=== PATIENT | female | born 1950 | race African-American/Black ===

== ENCOUNTER 2016-12-16 13:23 | Inpatient (IN) | payer OTHER ==
[2016-12-16] VITALS (10 sets, daily range): BP systolic 134–172; BP diastolic 65–93; PULSE 86–102; RESP 16–20; TEMP 98.3–98.7; O2SAT 89–99
[~2016-12-16] VITALS: Ht 160 cm; Wt 83.5 kg
[2016-12-16] MEDS ORDERED: SODIUM CHLORIDE 0.9% FLUSH 10 ML FLUSH IVF PRN (14:00)
[2016-12-16] MEDS ORDERED: RESP: ALBUTEROL 2.5 MG/IPRATROPIUM 0.5 MG NEB (SCH) INH ONE (14:00)
[2016-12-16 14:09] LABS: AUTOMATED NEUTROPHIL # 6.2 TH/MM3 (1.8-7.7); BASOPHIL % 0.4 % (0.0-2.0); EOSINOPHIL # 0.6 TH/MM3 (0-0.4); EOSINOPHIL % 6.3 % (0.0-4.0); HEMATOCRIT 45.3 % (35.0-46.0); HEMOGLOBIN 14.8 GM/DL (11.6-15.3); LYMPHOCYTE # 1.9 TH/MM3 (1.0-4.8); MEAN CELL VOLUME 86.7 FL (80.0-100.0); MEAN CORPUSCULAR HEMOGLOBIN 28.4 PG (27.0-34.0); MEAN CORPUSCULAR HGB CONC 32.8 % (32.0-36.0); MEAN PLATELET VOLUME 8.8 FL (7.0-11.0); MONO % 3.5 % (0.0-8.0); MONOCYTE # 0.3 TH/MM3 (0-0.9); NEUT % 68.8 % (16.0-70.0); PLATELET COUNT 241 TH/MM3 (150-450); RED BLOOD COUNT 5.22 MIL/MM3 (4.00-5.30); RED CELL DISTRIBUTION WIDTH 14.5 % (11.6-17.2); WHITE BLOOD COUNT 9.1 TH/MM3 (4.0-11.0)
--- NOTE | 2016-12-16 14:22 | PD ---
HPI Chief Complaint: Chest Pain Time Seen by Provider: 13:35 Travel History International Travel<30 days: No Contact w/Intl Traveler<30days: No Traveled to known affect area: No History of Present Illness HPI This is a 66-year-old female history of hyperlipidemia, who presents from the OR for evaluation of chest tightness and coughing congestion. The patient was seen and evaluated at the OR clinic today. They working diagnosis at time was bronchitis. They've given her 2 nebulizer treatments and 125 mg of Solu-Medrol IM. The patient was also complaining of two-week intermittent chest tightness. Given that, they sent her to be evaluated for her chest tightness in addition to her shortness of breath. The patient denies any exertional component of the chest tightness. She reports she can only walk a few feet before she gets winded. She has no history of pulmonary disease. [facility] Past Medical History Medical History: Denies Significant Hx Past Surgical History Surgical History: No Previous Surgery Social History Alcohol Use: No Tobacco Use: No Substance Use: No Allergies-Medications (Allergen,Severity, Reaction): Coded Allergies: No Known Allergies (Verified Allergy, Unknown, 12/16/16) Reported Meds & Prescriptions Reported Meds & Active Scripts Active No Active Prescriptions or Reported Medications Review of Systems Except as stated in HPI: all other systems reviewed are Neg General / Constitutional: No: Fever, Chills HENT: No: Headaches, Lightheadedness Cardiovascular: Positive: Chest Pain or Discomfort (tightness), No: Palpitations, Irregular Rhythm Respiratory: Positive: Cough, Shortness of Breath (thick phlegm), Wheezing Gastrointestinal: No: Nausea, Vomiting, Abdominal Pain Musculoskeletal: No: Weakness, Pain Neurologic: No: Weakness, Dizziness, Headache Physical Exam Narrative GENERAL: Well developed well-nourished female in mild respiratory discomfort SKIN: Focused skin assessment warm/dry. HEAD: Atraumatic. Normocephalic. EYES: Pupils equal and round. No scleral icterus. No injection or drainage. ENT: No nasal bleeding or discharge. Mucous membranes pink and moist. NECK: Trachea midline. Supple. CARDIOVASCULAR: Regular rate and rhythm. No murmur appreciated. RESPIRATORY: Diffuse expiratory wheezes with questionable Rales at the base. GASTROINTESTINAL: Abdomen soft, non-tender, nondistended. MUSCULOSKELETAL: No obvious deformities. No clubbing. No cyanosis. No edema. NEUROLOGICAL: Awake and alert. No obvious cranial nerve deficits. Motor grossly within normal limits. Normal speech. PSYCHIATRIC: Appropriate mood and affect; insight and judgment normal. Data Data Last Documented VS Vital Signs Date Time Temp Pulse Resp B/P (MAP) Pulse Ox O2 Delivery O2 Flow Rate FiO2 12/16/16 17:43 92 18 139/68 (91) 94 Nasal Cannula 3.00 12/16/16 13:27 98.7 Orders Orders Complete Blood Count With Diff (12/16/16 13:51) Comprehensive Metabolic Panel (12/16/16 13:51) Ckmb (Isoenzyme) Profile (12/16/16 13:51) Troponin I (12/16/16 13:51) Arterial Blood Gas (Abg) (12/16/16 13:51) Iv Access Insert/Monitor (12/16/16 13:51) Electrocardiogram (12/16/16 13:51) Ecg Monitoring (12/16/16 13:51) Oximetry (12/16/16 13:51) Oxygen Administration (12/16/16 13:51) Chest, Pa & Lat (12/16/16 13:51) Sodium Chloride 0.9% Flush (Ns Flush) (12/16/16 14:00) Albuterol-Ipratropium Neb (Duoneb Neb) (12/16/16 14:00) Ct Thorax/ Chest W Iv Contrast (12/16/16 15:47) Iohexol 350 Inj (Omnipaque 350 Inj) (12/16/16 16:13) Place In Observation (12/16/16 ) Vital Signs (Adult) Q4H (12/16/16 16:44) Activity Oob Ad Sandy (12/16/16 16:44) Bedside Glucose MANDY.CSUGAR (12/16/16 16:44) Collection Support Specialist / Telemetry .CONTINUOUS (12/16/16 16:44) Intake + Output MANDY.QSHIFT (12/16/16 16:44) Notify Dr: Other (12/16/16 16:44) Diet 1800 Ada Cons Carb (12/16/16 Dinner) Diet Heart Healthy (12/16/16 Dinner) Sodium Chloride 0.9% Flush (Ns Flush) (12/16/16 16:45) Sodium Chloride 0.9% Flush (Ns Flush) (12/16/16 21:00) Acetaminophen (Tylenol) (12/16/16 16:45) Ondansetron Inj (Zofran Inj) (12/16/16 16:45) Basic Metabolic Panel (Bmp) (12/17/16 06:00) Complete Blood Count With Diff (12/17/16 06:00) Resp Oxygen Abdirizak C Titrat 1-4 L (12/16/16 ) Case Management Consult (12/16/16 16:44) Heparin Inj (Heparin Inj) (12/16/16 17:00) Scd Bilateral/Knee High MANDY.BID (12/16/16 16:44) Naloxone Inj (Narcan Inj) (12/16/16 16:45) Docusate Sodium-Senna (Denae-Colace) (12/16/16 21:00) Magnesium Hydroxide Liq (Milk Of Magnesi (12/16/16 16:45) Sennosides (Senokot) (12/16/16 16:45) Bisacodyl Supp (Dulcolax Supp) (12/16/16 16:45) Lactulose Liq (Lactulose Liq) (12/16/16 16:45) Albuterol-Ipratropium Neb (Duoneb Neb) (12/16/16 20:00) Albuterol-Ipratropium Neb (Duoneb Neb) (12/16/16 17:00) Methylprednisolone So Succ Inj (Solumedr (12/16/16 22:00) Ct Abd/Pel W/O Iv Contrast (12/16/16 ) Oral Contrast - Adult (12/16/16 17:31) Diatrizoate Liq ( Gastroview Liq) (12/16/16 17:45) Admit Order (Ed Use Only) (12/16/16 17:54) Ceftriaxone Inj (Rocephin Inj) (12/16/16 18:00) Azithromycin Inj (Zithromax Inj) (12/16/16 18:00) Labs Laboratory Tests Test 12/16/16 13:58 12/16/16 14:20 White Blood Count 9.1 TH/MM3 Red Blood Count 5.22 MIL/MM3 Hemoglobin 14.8 GM/DL Hematocrit 45.3 % Mean Corpuscular Volume 86.7 FL Mean Corpuscular Hemoglobin 28.4 PG Mean Corpuscular Hemoglobin Concent 32.8 % Red Cell Distribution Width 14.5 % Platelet Count 241 TH/MM3 Mean Platelet Volume 8.8 FL Neutrophils (%) (Auto) 68.8 % Lymphocytes (%) (Auto) 21.0 % Monocytes (%) (Auto) 3.5 % Eosinophils (%) (Auto) 6.3 % Basophils (%) (Auto) 0.4 % Neutrophils # (Auto) 6.2 TH/MM3 Lymphocytes # (Auto) 1.9 TH/MM3 Monocytes # (Auto) 0.3 TH/MM3 Eosinophils # (Auto) 0.6 TH/MM3 Basophils # (Auto) 0.0 TH/MM3 CBC Comment DIFF FINAL Differential Comment Blood Urea Nitrogen 15 MG/DL Creatinine 0.84 MG/DL Random Glucose 107 MG/DL Total Protein 7.9 GM/DL Albumin 3.7 GM/DL Calcium Level 8.9 MG/DL Alkaline Phosphatase 107 U/L Aspartate Amino Transf (AST/SGOT) 19 U/L Alanine Aminotransferase (ALT/SGPT) 18 U/L Total Bilirubin 0.7 MG/DL Sodium Level 141 MEQ/L Potassium Level 3.5 MEQ/L Chloride Level 106 MEQ/L Carbon Dioxide Level 26.9 MEQ/L Anion Gap 8 MEQ/L Estimat Glomerular Filtration Rate 68 ML/MIN Total Creatine Kinase 47 U/L Troponin I LESS THAN 0.02 NG/ML Blood Gas Puncture Site LT RADIAL Blood Gas Patient Temperature 98.6 Blood Gas HCO3 25 mmol/L Blood Gas Base Excess 1.3 mmol/L Blood Gas Oxygen Saturation 88 % Arterial Blood pH 7.43 Arterial Blood Partial Pressure CO2 39 mmHg Arterial Blood Partial Pressure O2 56 mmHG Arterial Blood Oxygen Content 17.8 Vol % Arterial Blood Carboxyhemoglobin 1.2 % Arterial Blood Methemoglobin 0.5 % Blood Gas Hemoglobin 14.4 G/DL Blood Gas Inspired Oxygen 21 % [facility] Medical Decision Making Medical Screen Exam Complete: Yes Emergency Medical Condition: Yes Differential Diagnosis Bronchitis versus pneumonia versus COPD versus ACS Narrative Course 66-year-old female presents today with complaints of cough and shortness of breath. [facility]. 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 She is hypoxic with an O2 sat of 88%. She'll be admitted to the hospital for nebulizer treatments and antibiotics. She's been started on Rocephin and Zithromax here. [facility] the [facility] to the service. A CT chest has been ordered to evaluate the mediastinal mass. Diagnosis Primary Impression: Acute bronchitis Additional Impressions: Hypoxemia Mediastinal mass Admitting Information Admitting Physician Requests: Admit Scripts No Active Prescriptions or Reported Meds Damien Gray MD Dec 16, 2016 14:22
[2016-12-16 14:24] LABS: ALBUMIN 3.7 GM/DL (3.4-5.0); ALT (GPT) 18 U/L (10-53); AST (GOT) 19 U/L (15-37); BICARBONATE 26.9 MEQ/L (21.0-32.0); BLOOD UREA NITROGEN 15 MG/DL (7-18); CALCIUM 8.9 MG/DL (8.5-10.1); CHLORIDE 106 MEQ/L (98-107); CREATININE 0.84 MG/DL (0.50-1.00); GLOMERULAR FILTRATION RATE 68 ML/MIN (>89); GLUCOSE,RANDOM 107 MG/DL (74-106); SODIUM (NA) 141 MEQ/L (136-145)
[2016-12-16 14:28] LABS: ALKALINE PHOSPHATASE 107 U/L (45-117); TOTAL BILIRUBIN ADULT 0.7 MG/DL (0.2-1.0); TOTAL PROTEIN 7.9 GM/DL (6.4-8.2); TROPONIN I LESS THAN 0.02 NG/ML (0.02-0.05)
--- NOTE | 2016-12-16 15:12 | RADRPT ---
EXAM DATE/TIME: 12/16/2016 14:37 [facility] COMPARISON: No previous studies available for comparison. INDICATIONS : Tightness in chest MEDICAL HISTORY : None. SURGICAL HISTORY : None. ENCOUNTER: Initial ACUITY: 2 weeks PAIN SCORE: 6/10 LOCATION: Bilateral chest FINDINGS: PA and lateral views of the chest reveal a soft tissue mass involving the right paratracheal stripe. This measures approximately 7 x 4 cm. It displaces the trachea slightly towards the patient's left. H eart is normal in size. Lungs are clear. No effusions. Bony structures are unremarkable. CONCLUSION: Approximate 7 cm superior mediastinal mass. CT of the thorax with IV contrast needed to further evalu ate. Shayan Gomes Jr., MD on December 16, 2016 at 15:07 Board Certified Radiologist. This report was verified electronically.
[2016-12-16] MEDS ORDERED: IOHEXOL 350 MG/ML 10 ML VIAL (for RAD DIAG) IVCONTRAST ONE (16:13)
--- NOTE | 2016-12-16 16:37 | RADRPT ---
EXAM DATE/TIME: 12/16/2016 16:09 [facility] COMPARISON: No previous studies available for comparison. INDICATIONS : Chest tightness x2 weeks. Abnormal chest x-ray. IV CONTRAST: 70 cc Omnipaque 350 (iohexol) IV RADIATION DOSE: 5.25 CTDIvol (mGy) MEDICAL HISTORY : None SURGICAL HISTORY : None. ENCOUNTER: Initial ACUITY: 2 weeks PAIN SCALE: 6/10 LOCATION: Bilateral chest TECHNIQUE: Volumetric scanning of the chest was performed. Using automated exposure control and adjustment of t he mA and/or kV according to patient size, radiation dose was kept as low as reasonably achievable to obtain optimal diagnostic quality images. DICOM format image data is available electronically for review and comparison. Follow-up recommendations for detected pulmonary nodules are based at a minimum on nodule size and pa tient risk factors according to Fleischner Society Guidelines. FINDINGS: The pulmonary parenchyma is clear. There is no pleural effusion. No suspicious masses are seen within the lung parenchyma. Soft tissue windowed images demonstrate a 5.7 x 4.9 cm heterogeneously enhancing mass which is contig uous with the right lobe of the thyroid. There are several other low attenuation lesions within the t hyroid. Primary differential consideration would be substernal goiter. This is quite large in size an d biopsy to exclude malignancy may be of benefit. Alternatively, I-131 imaging could be performed. There is no significant hilar or mediastinal adenopathy. The heart is normal in size. No pericardial or pleural effusion is present. The limited portions of upper abdomen visualized are unremarkable in appearance. The visualized bony structures are intact. CONCLUSION: 1. 5.7 x 4.9 x 6.4 cm mass originating from the right lobe of the thyroid most consistent with subste rnal goiter. There is displacement of the airway towards the left. There are several other smaller no dules seen within the thyroid as well. If excision is not planned, biopsy to exclude malignancy may b e warranted. John Pruett MD on December 16, 2016 at 16:32 Board Certified Radiologist. This report was verified electronically.
[2016-12-16] MEDS ORDERED: ONDANSETRON HCL 4 MG/2 ML VIAL IVP PRN (16:45)
[2016-12-16] MEDS ORDERED: NALOXONE HCL 0.4 MG/ML AMP IV PUSH PRN (16:45)
[2016-12-16] MEDS ORDERED: SODIUM CHLORIDE 0.9% FLUSH 10 ML FLUSH IV FLUSH PRN (16:45)
[2016-12-16] MEDS ORDERED: SENNOSIDES 8.6 MG TAB PO PRN (16:45)
[2016-12-16] MEDS ORDERED: MAGNESIUM HYDROXIDE SUSP 30 ML CUP PO PRN (16:45)
[2016-12-16] MEDS ORDERED: LACTULOSE SYRUP 20 GM/30 ML CUP PO PRN (16:45)
[2016-12-16] MEDS ORDERED: BISACODYL 10 MG SUPP RECTAL PRN (16:45)
[2016-12-16] MEDS ORDERED: RESP: ALBUTEROL 2.5 MG/IPRATROPIUM 0.5 MG NEB (PRN) NEB (17:00)
--- NOTE | 2016-12-16 17:32 | HHI.HP ---
HPI Service [facility] Primary Care Physician Law Black M.D. Admission Diagnosis Diagnoses: Chief Complaint: Chest Tightness, cought, SOB Travel History International Travel<30 Days: No Contact w/Intl Traveler <30 Da: No Traveled to Known Affected Are: No History of Present Illness Written by Michael Turner, acting as scribe for Dr. Hernandez on 12/16/16 at 17: 29. 66-year-old female with no significant primary medical history who came in from the [place] [facility] for evaluation of chest tightness, cough, congestion. Patient states that she has been coughing since on and off however in the past 2 weeks the cough has been more often associated with shortness of breath, chest tightness, expectoration of mucus. Mucus has been described as not phlegm but there are chunks in pieces of greenish esparza colored matter. Patient was given 2 nebulization treatments and the [place] and also 125 mg of Solu-Medrol before transferring to the hospital. She reports hemoptysis on the first day of cough last 2 weeks ago. Reports weight loss of about 14 pounds in 3 weeks. Denies fevers, chills, nausea, vomiting, diarrhea. Reports mild abdominal pain that also started about 2 weeks ago with shortness of breath and cough however patient states that today she does not feel that abdominal pain. Denies dysuria, hematuria, hematemesis, hematochezia. Denies chest pain, palpitations, dizziness, headaches. Review of Systems Except as stated in HPI: all other systems reviewed are Neg Past Family Social History Past Medical History None Past Surgical History None Reported Medications None Allergies: Coded Allergies: No Known Allergies (Verified Allergy, Unknown, 12/16/16) Active Ordered Medications Current Medications Medications (Trade) Dose Ordered Sig/Chandan Route Start Time Stop Time Status Last Admin (NS Flush) 2 ml UNSCH PRN IV FLUSH 12/16/16 16:45 (NS Flush) 2 ml BID IV FLUSH 12/16/16 21:00 (Tylenol) 650 mg Q4H PRN PO 12/16/16 16:45 (Zofran Inj) 4 mg Q6H PRN IVP 12/16/16 16:45 (Heparin Inj) 5,000 units Q12H SQ 12/16/16 17:00 (Narcan Inj) 0.4 mg UNSCH PRN IV PUSH 12/16/16 16:45 (Denae-Colace) 1 tab BID PO 12/16/16 21:00 (Milk Of Magnesia Liq) 30 ml Q12H PRN PO 12/16/16 16:45 (Senokot) 17.2 mg Q12H PRN PO 12/16/16 16:45 (Dulcolax Supp) 10 mg DAILY PRN RECTAL 12/16/16 16:45 (Lactulose Liq) 30 ml DAILY PRN PO 12/16/16 16:45 (Duoneb Neb) 1 ampule QID NEB NEB 12/16/16 20:00 (Duoneb Neb) 1 ampule Q2HR NEB PRN NEB 12/16/16 17:00 (SoluMEDROL INJ) 40 mg Q8HR IV PUSH 12/16/16 22:00 Family History DM both parents. Dementia with father. Social History Denies alcohol use Denies tobacco use Denies illicit drug use Physical Exam Vital Signs Vital Signs Date Time Temp Pulse Resp B/P (MAP) Pulse Ox O2 Delivery O2 Flow Rate FiO2 12/16/16 17:03 94 Nasal Cannula 3.00 12/16/16 16:52 93 Nasal Cannula 3.00 12/16/16 15:23 86 18 145/65 (91) 93 Room Air 12/16/16 14:02 93 Nasal Cannula 2.00 12/16/16 14:02 93 Nasal Cannula 2.00 12/16/16 14:01 89 Room Air 12/16/16 14:01 89 Room Air 12/16/16 13:43 94 20 172/74 (106) 94 Room Air 12/16/16 13:43 89 20 95 Room Air 12/16/16 13:27 98.7 94 16 134/93 (107) 99 Physical Exam GENERAL: This is a well-nourished, well-developed patient, in no apparent distress. SKIN: No rashes, ecchymoses or lesions. Cool and dry. HEAD: Normocephalic. EYES: Pupils equal round and reactive. Extraocular motions intact. No scleral icterus. No injection or drainage. ENT: Nose without bleeding. Throat without erythema. Uvula midline. Airway patent. NECK: Trachea midline. No JVD. Supple. CARDIOVASCULAR: Regular rate and rhythm without murmurs, gallops, or rubs. RESPIRATORY: Bilateral crackles at the bases, diffuse wheezing. GASTROINTESTINAL: Abdomen soft, non-tender, nondistended. No hepato-splenomegaly , or palpable masses. No guarding. MUSCULOSKELETAL: Extremities without clubbing, cyanosis, or edema. NEUROLOGICAL: Awake and alert. Cranial nerves II through XII intact. Motor and sensory grossly within normal limits. Normal speech. Laboratory Laboratory Tests Test 12/16/16 13:58 12/16/16 14:20 White Blood Count 9.1 Red Blood Count 5.22 Hemoglobin 14.8 Hematocrit 45.3 Mean Corpuscular Volume 86.7 Mean Corpuscular Hemoglobin 28.4 Mean Corpuscular Hemoglobin Concent 32.8 Red Cell Distribution Width 14.5 Platelet Count 241 Mean Platelet Volume 8.8 Neutrophils (%) (Auto) 68.8 Lymphocytes (%) (Auto) 21.0 Monocytes (%) (Auto) 3.5 Eosinophils (%) (Auto) 6.3 Basophils (%) (Auto) 0.4 Neutrophils # (Auto) 6.2 Lymphocytes # (Auto) 1.9 Monocytes # (Auto) 0.3 Eosinophils # (Auto) 0.6 Basophils # (Auto) 0.0 CBC Comment DIFF FINAL Differential Comment Blood Urea Nitrogen 15 Creatinine 0.84 Random Glucose 107 Total Protein 7.9 Albumin 3.7 Calcium Level 8.9 Alkaline Phosphatase 107 Aspartate Amino Transf (AST/SGOT) 19 Alanine Aminotransferase (ALT/SGPT) 18 Total Bilirubin 0.7 Sodium Level 141 Potassium Level 3.5 Chloride Level 106 Carbon Dioxide Level 26.9 Anion Gap 8 Estimat Glomerular Filtration Rate 68 Total Creatine Kinase 47 Troponin I LESS THAN 0.02 Blood Gas Puncture Site LT RADIAL Blood Gas Patient Temperature 98.6 Blood Gas HCO3 25 Blood Gas Base Excess 1.3 Blood Gas Oxygen Saturation 88 Arterial Blood pH 7.43 Arterial Blood Partial Pressure CO2 39 Arterial Blood Partial Pressure O2 56 Arterial Blood Oxygen Content 17.8 Arterial Blood Carboxyhemoglobin 1.2 Arterial Blood Methemoglobin 0.5 Blood Gas Hemoglobin 14.4 Blood Gas Inspired Oxygen 21 Result Diagram: 12/16/16 1358 12/16/16 1358 Imaging Last Impressions Chest CT 12/16/16 1547 Signed Impressions: Service Date/Time: November 16:09 - CONCLUSION: 1. 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 There is displacement of the airway towards the left. There are several other smaller nodules seen within the thyroid as well. If excision is not planned, biopsy to exclude malignancy may be warranted. John Pruett MD Chest X-Ray 12/16/16 1351 Signed Impressions: Service Date/Time: November 14:37 - CONCLUSION: Approximate 7 cm superior mediastinal mass. CT of the thorax with IV contrast needed to further evaluate. MD Brady Colon Jr. VTE Risk Assessment Caprini VTE Risk Assessment: Mod/High Risk (score >= 2) Caprini Risk Assessment Model Point Value = 1 Point Value = 2 Point Value = 3 Point Value = 5 Age 41-60 Minor surgery BMI > 25 kg/m2 Swollen legs Varicose veins or History of unexplained or recurrent spontaneous Oral contraceptives or hormone replacement Sepsis (< 1 month) Serious lung disease, including pneumonia (< 1 month) Abnormal pulmonary function Acute myocardial infarction Congestive heart failure (< 1 month) History of inflammatory bowel disease Medical patient at bed rest Age 61-74 Arthroscopic surgery Major open surgery (> 45 min) Laparoscopic surgery (> 45 min) Malignancy Confined to bed (> 72 hours) Immobilizing plaster cast Central venous access Age >= 75 History of VTE Family history of VTE Factor V Leiden Prothrombin [id number] Lupus anticoagulant Anticardiolipin antibodies Elevated serum homocysteine Heparin-induced thrombocytopenia Other congenital or acquired thrombophilia Stroke (< 1 month) Elective arthroplasty Hip, pelvis, or leg fracture Acute spinal cord injury (< 1 month) Prophylaxis Regimen Total Risk Factor Score Risk Level Prophylaxis Regimen 0-1 Low Early ambulation 2 Moderate Order ONE of the following: *Sequential Compression Device (SCD) *Heparin 5000 units SQ BID 3-4 Higher Order ONE of the following medications: *Heparin 5000 units SQ TID *Enoxaparin/Lovenox 40 mg SQ daily (WT < 150 kg, CrCl > 30 mL/min) *Enoxaparin/Lovenox 30 mg SQ daily (WT < 150 kg, CrCl > 10-29 mL/min) *Enoxaparin/Lovenox 30 mg SQ BID (WT < 150 kg, CrCl > 30 mL/min) AND/OR *Sequential Compression Device (SCD) 5 or more Highest Order ONE of the following medications: *Heparin 5000 units SQ TID (Preferred with Epidurals) *Enoxaparin/Lovenox 40 mg SQ daily (WT < 150 kg, CrCl > 30 mL/min) *Enoxaparin/Lovenox 30 mg SQ daily (WT < 150 kg, CrCl > 10-29 mL/min) *Enoxaparin/Lovenox 30 mg SQ BID (WT < 150 kg, CrCl > 30 mL/min) AND *Sequential Compression Device (SCD) Assessment and Plan Problem List: (1) Lung mass ICD Code: R91.8 - Other nonspecific abnormal finding of lung field Assessment and Plan 66-year-old female with no significant primary medical history who came in from the [place] [facility] for evaluation of chest tightness, cough, congestion. Acute Respiratory Failure, hypoxia ?Lung Mass - Complaints of chest tightness, shortness of breath, cough, congestion and expectoration of mucus - Reports [place] did breast biopsy and thyroid biopsy recently, reported to be benign as per patient - ABG 02 56, O2 sat 88% - Chest x-ray showed approximate 7 cm superior mediastinal mass. Consult oncology/pulmonology - CT of the chest showed 5.7 x 4.9 x 6.4 cm mass originating from the right lobe of the thyroid most consistent with substernal goiter. There is a displacement of the airway towards the left. There are several other smaller nodules seen within the thyroid as well fixation is not planned, biopsied to exclude malignancy may be warranted. - Solumedrol IV 40mg q8 hrs - Duonebs cheduled and PRN - O2 nasal cannula, keep O2 sat greater than 92% - Pulmonary consult for further recommendation. Possible candidate for bronchoscopy with biopsy - Check CT of the abdomen/ Pelvis r/o other masses DVT prop heparin Code Status Full code Discussed Condition With Patient, , Nursing, ED Attending Michael Hook Dec 16, 2016 17:32 Frank Hernandez MD Dec 16, 2016 18:10
[2016-12-16] MEDS ORDERED: DIATRIZOATE MEGLUM/DIATRIZOATE SOD 9 ML CUP ONE (17:45)
[2016-12-16] MEDS: HEPARIN SODIUM - SQ 10,000 UNITS/ML VIAL SQ SCH (17:50)
[2016-12-16] MEDS ORDERED: AZITHROMYCIN INJ 500 MG in SODIUM CHLOR 0.9% 250 ML INJ 250 ML IV ONE (18:00)
[2016-12-16] MEDS ORDERED: cefTRIAXone INJ 1,000 MG in SODIUM CHLORIDE 0.9% INJ 100 ML IV ONE (18:00)
[2016-12-16] MEDS: RESP: ALBUTEROL 2.5 MG/IPRATROPIUM 0.5 MG NEB (SCH) NEB (20:17)
--- NOTE | 2016-12-16 20:44 | RADRPT ---
EXAM DATE/TIME: 12/16/2016 19:28 [facility] COMPARISON: No previous studies available for comparison. INDICATIONS : Abdomen pain ORAL CONTRAST: Prescribed oral contrast ingested. RADIATION DOSE: 11.45 CTDIvol (mGy) MEDICAL HISTORY : None SURGICAL HISTORY : None. ENCOUNTER: Initial ACUITY: 1 day PAIN SCALE: 6/10 LOCATION: Bilateral abdomen TECHNIQUE: Volumetric scanning of the abdomen and pelvis was performed. Using automated exposure control and ad justment of the mA and/or kV according to patient size, radiation dose was kept as low as reasonably achievable to obtain optimal diagnostic quality images. DICOM format image data is available electro nically for review and comparison. FINDINGS: LOWER LUNGS: The visualized lower lungs are clear. LIVER: Homogeneous density without lesion. There is no dilation of the biliary tree. No calcified gallston es. SPLEEN: Normal size without lesion. PANCREAS: Within normal limits. KIDNEYS: Normal in size and shape. There is no mass, stone, or hydronephrosis. ADRENAL GLANDS: Within normal limits. VASCULAR: There is no aortic aneurysm. BOWEL/MESENTERY: The stomach, small bowel, and colon demonstrate no acute abnormality. There is no free intraperitone al air or fluid. ABDOMINAL WALL: Within normal limits. RETROPERITONEUM: There is no lymphadenopathy. BLADDER: No wall thickening or mass. REPRODUCTIVE: Within normal limits. INGUINAL: There is no lymphadenopathy or hernia. MUSCULOSKELETAL: Within normal limits for patient age. CONCLUSION: No acute CT findings in the abdomen or pelvis. Steve Buenrostro MD on December 16, 2016 at 20:36 Board Certified Radiologist. This report was verified electronically.
[2016-12-16] MEDS: SODIUM CHLORIDE 0.9% FLUSH 10 ML FLUSH IV FLUSH SCH (21:00)
[2016-12-16] MEDS: methylPREDNISolone SOD SUCC 40 MG/1 ML VIAL IV PUSH SCH (21:58)
[2016-12-16] MEDS: DOCUSATE SODIUM 50 MG/SENNA 8.6 MG TAB PO SCH (21:58)
--- NOTE | 2016-12-16 23:27 | EKG ---
Date Performed: 12/16/2016 Time Performed: 13:54:27 PTAGE: 66 years EKG: Sinus rhythm NONSPECIFIC T-WAVE ABNORMALITY BORDERLINE ECG NO PREVIOUS TRACING DOCTOR: Jamie Mccabe Interpretating Date/Time 12/16/2016 23:25:31
[2016-12-17] VITALS (8 sets, daily range): BP systolic 118–143; BP diastolic 64–86; PULSE 73–107; RESP 18–20; TEMP 97.7–98.8; O2SAT 93–98
[2016-12-17] MEDS: HEPARIN SODIUM - SQ 10,000 UNITS/ML VIAL SQ SCH ×2 (05:51→16:09)
[2016-12-17] MEDS: methylPREDNISolone SOD SUCC 40 MG/1 ML VIAL IV PUSH SCH ×3 (05:52→22:00)
[2016-12-17] MEDS: RESP: ALBUTEROL 2.5 MG/IPRATROPIUM 0.5 MG NEB (SCH) NEB ×4 (08:49→22:09)
[2016-12-17] MEDS: SODIUM CHLORIDE 0.9% FLUSH 10 ML FLUSH IV FLUSH SCH ×2 (09:00→20:20)
[2016-12-17] MEDS: DOCUSATE SODIUM 50 MG/SENNA 8.6 MG TAB PO SCH ×2 (09:00→20:20)
[2016-12-17 09:43] LABS: AUTOMATED NEUTROPHIL # 12.6 TH/MM3 (1.8-7.7); BASOPHIL % 0.1 % (0.0-2.0); HEMATOCRIT 47.2 % (35.0-46.0); HEMOGLOBIN 15.4 GM/DL (11.6-15.3); LYMPH % 8.6 % (9.0-44.0); LYMPHOCYTE # 1.2 TH/MM3 (1.0-4.8); MEAN CELL VOLUME 87.8 FL (80.0-100.0); MEAN CORPUSCULAR HEMOGLOBIN 28.7 PG (27.0-34.0); MEAN CORPUSCULAR HGB CONC 32.6 % (32.0-36.0); MEAN PLATELET VOLUME 9.6 FL (7.0-11.0); MONOCYTE # 0.3 TH/MM3 (0-0.9); NEUT % 89.3 % (16.0-70.0); PLATELET COUNT 271 TH/MM3 (150-450); RED BLOOD COUNT 5.38 MIL/MM3 (4.00-5.30); RED CELL DISTRIBUTION WIDTH 14.9 % (11.6-17.2); WHITE BLOOD COUNT 14.1 TH/MM3 (4.0-11.0)
[2016-12-17 09:55] LABS: BICARBONATE 22.4 MEQ/L (21.0-32.0); CALCIUM 9.5 MG/DL (8.5-10.1); CREATININE 0.8 MG/DL (0.50-1.00)
[2016-12-17 12:46] LABS: FREE T4 1.25 NG/DL (0.76-1.46)
--- NOTE | 2016-12-17 15:35 | HHI.PR ---
Subjective Remarks feeling much much better now ambulating around- comfortably denies any difficulty swallowing- Objective Vitals Vital Signs Date Time Temp Pulse Resp B/P (MAP) Pulse Ox O2 Delivery O2 Flow Rate FiO2 12/17/16 12:36 98.4 107 20 118/86 (97) 96 12/17/16 08:53 98 Nasal Cannula 2.00 12/17/16 08:31 98.5 86 18 143/76 (98) 97 12/17/16 04:00 97.7 107 18 118/74 (89) 94 12/17/16 00:00 97.7 97 18 137/69 (91) 95 12/16/16 20:21 93 Nasal Cannula 2.50 12/16/16 20:00 98.3 102 18 140/75 (96) 91 12/16/16 19:48 12/16/16 18:48 96 18 155/69 (97) 96 Nasal Cannula 3.00 12/16/16 17:43 92 18 139/68 (91) 94 Nasal Cannula 3.00 12/16/16 17:03 94 Nasal Cannula 3.00 12/16/16 16:52 93 Nasal Cannula 3.00 I/O 12/16/16 12/16/16 12/16/16 12/17/16 12/17/16 12/17/16 07:00 15:00 23:00 07:00 15:00 23:00 Intake Total 360 ml 570 ml Balance 360 ml 570 ml Intake Oral 360 ml 570 ml # Voids 2 2 1 Result Diagram: 12/17/16 0808 12/17/16 0808 Imaging Last Impressions Chest CT 12/16/16 1547 Signed Impressions: Service Date/Time: November 16:09 - CONCLUSION: 1. 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 There is displacement of the airway towards the left. There are several other smaller nodules seen within the thyroid as well. If excision is not planned, biopsy to exclude malignancy may be warranted. John Pruett MD Chest X-Ray 12/16/16 1351 Signed Impressions: Service Date/Time: November 14:37 - CONCLUSION: Approximate 7 cm superior mediastinal mass. CT of the thorax with IV contrast needed to further evaluate. Shayan Gomes Jr., MD Abdomen/Pelvis CT 12/16/16 0000 Signed Impressions: Service Date/Time: November 19:28 - CONCLUSION: No acute CT findings in the abdomen or pelvis. Steve Buenrostro MD Objective Remarks awake adn alert, oriented x 3 anicteric neck thryoid palpable, no bruit lungs- no rales, occasional wheeze regular rhythm abdomen soft, nontender extremities no edema neuro exam- non focal A/P Problem List: (1) Lung mass ICD Code: R91.8 - Other nonspecific abnormal finding of lung field Assessment and Plan 66-year-old female with no significant primary medical history who came in from the [place] [facility] for evaluation of chest tightness, cough, congestion. Acute Respiratory Failure, hypoxia - improved Acute bronchitis- improved ?Lung/Mediastinal Mass - Pulmonary consulted - continue IV solumedrol q 8 check 02 sats ambulatory thyroid mass/goiter- per patient recent biopsy- [facility] - ff up for surgery- as report states causing displacement of the airway- d/w patient DVT prop heparin Patient up and ambulating Heraclio Lyles MD Dec 17, 2016 15:35
[2016-12-17] MEDS ORDERED: RESP: ALBUTEROL 1.25 MG/3 ML NEB (PRN) NEB (18:00)
--- NOTE | 2016-12-17 18:47 | MB ---
cc: ThiagoMashaOLEA,ZANA DATE OF CONSULTATION 12/17/16 REASON FOR CONSULTATION Persistent cough and respiratory distress. HISTORY OF PRESENT ILLNESS This is a 66 year-old lady who was admitted through the emergency room with complaints of chest tightness, persistent cough and congestion for the past 2-3 months. The patient's symptoms got much worse this past week with tightness in upper chest and almost a choking sensation and she was unable to bring up much mucus but did have some yellow green sputum. She denied fevers, chills, hemoptysis or night sweats. She has been given Solu-Medrol and nebulized bronchodilators with some improvement but continues to have persistent cough. The patient had a CT scan of the chest which showed a 5.7 x 4.9 cm substernal mass arising from the thyroid and distorting the airway. The patient has had no nausea, dizziness or blackouts. PAST MEDICAL HISTORY Past history of persistent cough and bronchitis. No history of surgery. The patient did have a needle biopsy of thyroid nodule done more than a year ago and she was told that it was benign lesion but no further followup was given HABITS The patient does not smoke. Denies significant alcohol use or other drug use. FAMILY HISTORY Noncontributory ALLERGIES No drug allergies listed. REVIEW OF SYSTEMS The patient denies recent weight loss. No headaches or blackouts. No urinary symptoms. No leg or calf muscle pains. She has some joint pains of her extremities. Denies any skin lesions. She has no anxiety or depression. PHYSICAL EXAMINATION GENERAL: This is an averagely built middle-aged -[place] female in no acute distress. VITAL SIGNS: Blood pressure 150/70, pulse is 85, respirations 20, temperature 98.2. HEENT: Head normocephalic. Pupils are reactive. Tongue is moist. Throat is mildly injected. NECK: Supple. There is a prominent lobe of the thyroid in the right side, also a smaller nodular area in the left side of the neck towards the trachea. The submandibular nodes are palpable. There is no venous distension. CHEST: Equal movements with percussion note resonant throughout. Breath sounds slightly diminished over the periphery but otherwise clear. HEART: The heart sounds are regular S1-S2 with no murmur. No S3. ABDOMEN: Soft and nontender. No organomegaly. The bowel sounds are active. EXTREMITIES: No lesions. No edema. NEUROLOGIC: Reflexes are 1+ with no gross motor deficits. Cranial nerves grossly intact. SKIN: No lesions. IMPRESSION 1. 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 2. Respiratory insufficiency secondary to above. 3. History of persistent cough and reactive airways. PLAN The patient will be sent for a pulmonary function study with flow-volume loops. We will also start her on nebulized albuterol solution q.i.d. p.r.n. Continue with Solu-Medrol 40 mg every 8 hours. Also get a cardiothoracic consultation to have the substernal mass resected. The patient was advised to give the sputum for culture and gram stain and antibiotics added if indicated. Thank you, Dr. Lyles, for this consultation. MD TEVIN Ivey/ /5:50 PM /6:26 PM
[2016-12-18] VITALS (8 sets, daily range): BP systolic 117–145; BP diastolic 57–66; PULSE 20–93; RESP 18–20; TEMP 97.6–98; O2SAT 93–100
[2016-12-18] MEDS: HEPARIN SODIUM - SQ 10,000 UNITS/ML VIAL SQ SCH ×2 (05:52→15:45)
[2016-12-18] MEDS: methylPREDNISolone SOD SUCC 40 MG/1 ML VIAL IV PUSH SCH ×3 (05:52→22:43)
[2016-12-18] MEDS: RESP: ALBUTEROL 2.5 MG/IPRATROPIUM 0.5 MG NEB (SCH) NEB ×4 (07:39→19:32)
[2016-12-18] MEDS: SODIUM CHLORIDE 0.9% FLUSH 10 ML FLUSH IV FLUSH SCH ×2 (09:00→22:44)
[2016-12-18] MEDS: DOCUSATE SODIUM 50 MG/SENNA 8.6 MG TAB PO SCH ×2 (09:18→21:00)
--- NOTE | 2016-12-18 09:45 | HHI.PR ---
Subjective Remarks 12/18 No events overnight. Patient is lying in bed in NAD. On room air oxygen. Denies any SOB, wheezing or chest pain. Objective Vital Signs Vital Signs Date Time Temp Pulse Resp B/P (MAP) Pulse Ox O2 Delivery O2 Flow Rate FiO2 12/18/16 08:20 97.6 72 20 128/59 (82) 100 12/18/16 07:42 99 21 12/18/16 04:30 97.8 20 18 126/59 (81) 93 12/18/16 00:16 97.6 93 18 145/66 (92) 93 12/17/16 22:15 95 12/17/16 20:42 97.7 73 18 137/64 (88) 93 12/17/16 16:18 98.8 81 20 129/84 (99) 95 12/17/16 12:36 98.4 107 20 118/86 (97) 96 I/O 12/17/16 12/17/16 12/17/16 12/18/16 12/18/16 12/18/16 07:00 15:00 23:00 07:00 15:00 23:00 Intake Total 570 ml Balance 570 ml Intake Oral 570 ml # Voids 2 2 2 1 # Bowel Movements 1 0 0 1 Result Diagram: 12/17/16 0808 12/17/16 0808 Other Results Last Impressions Chest CT 12/16/16 1547 Signed Impressions: Service Date/Time: November 16:09 - CONCLUSION: 1. 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 There is displacement of the airway towards the left. There are several other smaller nodules seen within the thyroid as well. If excision is not planned, biopsy to exclude malignancy may be warranted. John Pruett MD Chest X-Ray 12/16/16 1351 Signed Impressions: Service Date/Time: November 14:37 - CONCLUSION: Approximate 7 cm superior mediastinal mass. CT of the thorax with IV contrast needed to further evaluate. Shayan Gomes Jr., MD Abdomen/Pelvis CT 12/16/16 0000 Signed Impressions: Service Date/Time: November 19:28 - CONCLUSION: No acute CT findings in the abdomen or pelvis. Steve Buenrostro MD Objective Remarks GENERAL: Patient is 66 yo lying in bed in NAD SKIN: Warm and dry. HEAD: Normocephalic. EYES: No scleral icterus. No injection or drainage. NECK: Supple, trachea midline. No JVD or lymphadenopathy. CARDIOVASCULAR: Regular rate and rhythm without murmurs, gallops, or rubs. RESPIRATORY: Breath sounds equal bilaterally. No accessory muscle use. GASTROINTESTINAL: Abdomen soft, non-tender, nondistended. MUSCULOSKELETAL: No cyanosis, or edema. Neuro: Awake and alert A/P Assessment and Plan 1. 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 2. History of persistent cough and reactive airways. 3 Leukocytosis PLAN Oxygen PRN keep sat >92% Bronchodilators PRN, Solumederol 40mg Q8 PFT with flow-volume loops. CTS evaluation for possible resection. Monitor for signs of infections ( Fever, WBC) check sputum cx GI/DVT prophylaxis per primary team. Continue treatment plan. Anthony Velasquez MD Dec 18, 2016 09:45
--- NOTE | 2016-12-18 09:47 | PD.CONS ---
History of Present Illness Service CT Surgery Consult Requested By Dr. Champion Reason for Consult Mediastinal mass Primary Care Physician Law Black M.D. Diagnoses: (1) Mediastinal mass History of Present Illness 66y/o female presents with cough, congestion, dyspnea, and mild dysphagia for several weeks. 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 She is being considered for surgical exploration and resection. She denies h/o thyroid disease or malignancy Review of Systems Constitutional: COMPLAINS OF: Weight loss, DENIES: Diaphoretic episodes, Fatigue, Fever, Weight gain, Chills, Dizziness, Change in appetite, Night Sweats Endocrine: DENIES: Abnorml menstrual pattern, Heat/cold intolerance, Polydipsia , Polyuria, Polyphagia Eyes: DENIES: Blurred vision, Diplopia, Eye inflammation, Eye pain, Vision loss , Photosensitivity, Double Vision Ears, nose, mouth, throat: DENIES: Tinnitus, Hearing loss, Vertigo, Nasal discharge, Oral lesions, Throat pain, Hoarseness, Ear Pain, Running Nose, Epistaxis, Sinus Pain, Toothache, Odynophagia Respiratory: COMPLAINS OF: Cough, Wheezing, Shortness of breath, DENIES: Apneas , Snoring, Hemoptysis, Sputum production Cardiovascular: DENIES: Chest pain, Palpitations, Syncope, Dyspnea on Exertion , PND, Lower Extremity Edema, Orthopnea, Claudication Gastrointestinal: COMPLAINS OF: Difficulty Swallowing, DENIES: Abdominal pain, Black stools, Bloody stools, Constipation, Diarrhea, Nausea, Vomiting, Anorexia Genitourinary: DENIES: Abnormal vaginal bleeding, Dysmenorrhea, Dyspareunia, Sexual dysfunction, Urinary frequency, Urinary incontinence, Urgency, Hematuria , Dysuria, Nocturia, Vaginal discharge Musculoskeletal: DENIES: Joint pain, Muscle aches, Stiffness, Joint Swelling, Back pain, Neck pain Integumentary: DENIES: Abnormal pigmentation, Pruritus, Rash, Nail changes, Breast masses, Breast skin changes, Nipple discharge Hematologic/lymphatic: DENIES: Bruising, Lymphadenopathy Immunologic/allergic: DENIES: Eczema, Urticaria Neurologic: DENIES: Abnormal gait, Headache, Localized weakness, Paresthesias, Seizures, Speech Problems, Tremor, Poor Balance Psychiatric: DENIES: Anxiety, Confusion, Mood changes, Depression, Hallucinations, Agitation, Suicidal Ideation, Homicidal Ideation, Delusions Past Family Social History Allergies: Coded Allergies: No Known Allergies (Verified Allergy, Unknown, 12/16/16) Past Medical History none Past Surgical History none Reported Medications none Active Ordered Medications Current Medications Medications (Trade) Dose Ordered Sig/Chandan Route Start Time Stop Time Status Last Admin (NS Flush) 2 ml UNSCH PRN IV FLUSH 12/16/16 16:45 (NS Flush) 2 ml BID IV FLUSH 12/16/16 21:00 12/18/16 09:00 (Tylenol) 650 mg Q4H PRN PO 12/16/16 16:45 (Zofran Inj) 4 mg Q6H PRN IVP 12/16/16 16:45 (Heparin Inj) 5,000 units Q12H SQ 12/16/16 17:00 12/18/16 05:52 (Narcan Inj) 0.4 mg UNSCH PRN IV PUSH 12/16/16 16:45 (Denae-Colace) 1 tab BID PO 12/16/16 21:00 12/18/16 09:18 (Milk Of Magnesia Liq) 30 ml Q12H PRN PO 12/16/16 16:45 (Senokot) 17.2 mg Q12H PRN PO 12/16/16 16:45 (Dulcolax Supp) 10 mg DAILY PRN RECTAL 12/16/16 16:45 (Lactulose Liq) 30 ml DAILY PRN PO 12/16/16 16:45 (Duoneb Neb) 1 ampule QID NEB NEB 12/16/16 20:00 12/18/16 07:39 (Duoneb Neb) 1 ampule Q2HR NEB PRN NEB 12/16/16 17:00 (SoluMEDROL INJ) 40 mg Q8HR IV PUSH 12/16/16 22:00 12/18/16 05:52 (Albuterol Neb) 1.25 mg Q6HR NEB PRN NEB 12/17/16 18:00 Family History Diabetes in parents Social History denies tobacco, ETOH Physical Exam Vital Signs Vital Signs Date Time Temp Pulse Resp B/P (MAP) Pulse Ox O2 Delivery O2 Flow Rate FiO2 12/18/16 08:20 97.6 72 20 128/59 (82) 100 12/18/16 07:42 99 21 12/18/16 04:30 97.8 20 18 126/59 (81) 93 12/18/16 00:16 97.6 93 18 145/66 (92) 93 12/17/16 22:15 95 12/17/16 20:42 97.7 73 18 137/64 (88) 93 12/17/16 16:18 98.8 81 20 129/84 (99) 95 12/17/16 12:36 98.4 107 20 118/86 (97) 96 Physical Exam GENERAL: This is a well-nourished, well-developed patient, in no apparent distress. SKIN: No rashes, ecchymoses or lesions. Cool and dry. HEAD: Atraumatic. Normocephalic. No temporal or scalp tenderness. EYES: Pupils equal round and reactive. Extraocular motions intact. No scleral icterus. No injection or drainage. ENT: Nose without bleeding, purulent drainage or septal hematoma. Throat without erythema, tonsillar hypertrophy or exudate. Uvula midline. Airway patent. NECK: Trachea midline. No JVD or palpable left cervical nodes. Supple, nontender , no meningeal signs. CARDIOVASCULAR: Regular rate and rhythm without murmurs, gallops, or rubs. RESPIRATORY: Clear to auscultation. Breath sounds equal bilaterally. No wheezes , rales, or rhonchi. GASTROINTESTINAL: Abdomen soft, non-tender, nondistended. No hepato-splenomegaly , or palpable masses. No guarding. MUSCULOSKELETAL: Extremities without clubbing, cyanosis, or edema. No joint tenderness, effusion, or edema noted. No calf tenderness. Negative Homans sign bilaterally. NEUROLOGICAL: Awake and alert. Cranial nerves II through XII intact. Motor and sensory grossly within normal limits. Five out of 5 muscle strength in all muscle groups. Normal speech. Result Diagram: 12/17/16 0808 12/17/16 0808 Imaging Last Impressions Chest CT 12/16/16 1547 Signed Impressions: Service Date/Time: November 16:09 - CONCLUSION: 1. 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 There is displacement of the airway towards the left. There are several other smaller nodules seen within the thyroid as well. If excision is not planned, biopsy to exclude malignancy may be warranted. John Pruett MD Chest X-Ray 12/16/16 1351 Signed Impressions: Service Date/Time: November 14:37 - CONCLUSION: Approximate 7 cm superior mediastinal mass. CT of the thorax with IV contrast needed to further evaluate. Shayan Gomes Jr., MD Abdomen/Pelvis CT 12/16/16 0000 Signed Impressions: Service Date/Time: November 19:28 - CONCLUSION: No acute CT findings in the abdomen or pelvis. Steve Buenrostro MD Course Patient is currently stable with no complaints. She is concerned about having surgery here due to insurance issues. Assessment and Plan Problem List: (1) Mediastinal mass ICD Codes: J98.59 - Other diseases of mediastinum, not elsewhere classified Status: Acute Assessment and Plan 66 y/o female with no significant PMH presents with cough, congestion,mild dysphagia and a large 6 cm upper mediastinal mass of unknown etiology. This may be a mediastinal goiter vs germ cell tumor, teratoma, lymphoma etc. Surgical resection is indicated. I discussed this with the patient and could schedule this procedure this week. She expressed concern that she would have to have the procedure at the [facility] [place]. I will check with her again tomorrow and her surgery can be scheduled electively as long as she remains clinically stable Discussed Condition With patient Pamella Samuel MD Dec 18, 2016 09:47
--- NOTE | 2016-12-18 12:44 | HHI.PR ---
Subjective Remarks no complains up and ambulating with no shortness of breath at room air no difficulty swallowing Objective Vitals Vital Signs Date Time Temp Pulse Resp B/P (MAP) Pulse Ox O2 Delivery O2 Flow Rate FiO2 12/18/16 12:38 97.6 69 20 129/57 (81) 99 12/18/16 08:20 97.6 72 20 128/59 (82) 100 12/18/16 07:42 99 21 12/18/16 04:30 97.8 20 18 126/59 (81) 93 12/18/16 00:16 97.6 93 18 145/66 (92) 93 12/17/16 22:15 95 12/17/16 20:42 97.7 73 18 137/64 (88) 93 12/17/16 16:18 98.8 81 20 129/84 (99) 95 I/O 12/17/16 12/17/16 12/17/16 12/18/16 12/18/16 12/18/16 07:00 15:00 23:00 07:00 15:00 23:00 Intake Total 570 ml Balance 570 ml Intake Oral 570 ml # Voids 2 2 2 1 # Bowel Movements 1 0 0 1 Result Diagram: 12/17/16 0808 12/17/16 0808 Imaging Last Impressions Chest CT 12/16/16 1547 Signed Impressions: Service Date/Time: November 16:09 - CONCLUSION: 1. 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 There is displacement of the airway towards the left. There are several other smaller nodules seen within the thyroid as well. If excision is not planned, biopsy to exclude malignancy may be warranted. John Pruett MD Chest X-Ray 12/16/16 1351 Signed Impressions: Service Date/Time: November 14:37 - CONCLUSION: Approximate 7 cm superior mediastinal mass. CT of the thorax with IV contrast needed to further evaluate. Shayan Gomes Jr., MD Abdomen/Pelvis CT 12/16/16 0000 Signed Impressions: Service Date/Time: November 19:28 - CONCLUSION: No acute CT findings in the abdomen or pelvis. Steve Buenrostro MD Objective Remarks awake and alert, oriented x 3, No acute distress anicteric neck thyroid palpable, no bruit lungs- no rales, no wheezes regular rhythm abdomen soft, nontender extremities no edema neuro exam- non focal A/P Problem List: (1) Lung mass ICD Code: R91.8 - Other nonspecific abnormal finding of lung field Assessment and Plan 66-year-old female with no significant primary medical history who came [place] [facility] for [place] of chest tightness, cough, congestion. Acute Respiratory Failure, hypoxia - resolved Acute bronchitis- improved ?Lung/Mediastinal Mass - Pulmonary/CTS ff - continue IV solumedrol q 8- decrease check 02 sats ambulatory- good possible surgery thyroid mass/goiter- per patient recent biopsy[facility] prop [facility] Patient up and ambulating Heraclio Lyles MD Dec 18, 2016 12:44
[2016-12-19] VITALS (10 sets, daily range): BP systolic 124–136; BP diastolic 57–68; PULSE 60–91; RESP 18–20; TEMP 97.7–98.2; O2SAT 92–96
[2016-12-19] MEDS: HEPARIN SODIUM - SQ 10,000 UNITS/ML VIAL SQ SCH ×2 (05:01→16:48)
[2016-12-19] MEDS: RESP: ALBUTEROL 2.5 MG/IPRATROPIUM 0.5 MG NEB (SCH) NEB ×4 (08:42→20:26)
[2016-12-19] MEDS: methylPREDNISolone SOD SUCC 40 MG/1 ML VIAL IV PUSH SCH ×2 (09:10→20:41)
[2016-12-19] MEDS: DOCUSATE SODIUM 50 MG/SENNA 8.6 MG TAB PO SCH ×2 (09:10→20:42)
[2016-12-19] MEDS: SODIUM CHLORIDE 0.9% FLUSH 10 ML FLUSH IV FLUSH SCH ×2 (09:11→20:41)
--- NOTE | 2016-12-19 10:17 | HHI.PR ---
Subjective Remarks feeling better up and ambulating Objective Vitals Vital Signs Date Time Temp Pulse Resp B/P (MAP) Pulse Ox O2 Delivery O2 Flow Rate FiO2 12/19/16 10:07 76 12/19/16 08:46 98.2 60 20 131/63 (85) 96 12/19/16 08:43 95 Nasal Cannula 2.00 12/19/16 05:17 98.0 71 18 126/60 (82) 93 12/19/16 00:00 98.0 91 18 124/57 (79) 93 12/18/16 20:00 97.8 81 18 117/59 (78) 95 12/18/16 19:34 95 12/18/16 17:00 98.0 73 20 122/59 (80) 94 12/18/16 12:38 97.6 69 20 129/57 (81) 99 I/O 12/18/16 12/18/16 12/18/16 12/19/16 12/19/16 12/19/16 06:59 14:59 22:59 06:59 14:59 22:59 # Voids 1 # Bowel Movements 0 1 Result Diagram: 12/17/16 0808 12/17/16 0808 Imaging Last Impressions Chest CT 12/16/16 1547 Signed Impressions: Service Date/Time: November 16:09 - CONCLUSION: 1. 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 There is displacement of the airway towards the left. There are several other smaller nodules seen within the thyroid as well. If excision is not planned, biopsy to exclude malignancy may be warranted. John Pruett MD Chest X-Ray 12/16/16 1351 Signed Impressions: Service Date/Time: November 14:37 - CONCLUSION: Approximate 7 cm superior mediastinal mass. CT of the thorax with IV contrast needed to further evaluate. Shayan Gomes Jr., MD Abdomen/Pelvis CT 12/16/16 0000 Signed Impressions: Service Date/Time: November 19:28 - CONCLUSION: No acute CT findings in the abdomen or pelvis. Steve Buenrostro MD Objective Remarks awake and alert, oriented x 3, No acute distress anicteric neck thyroid palpable, no bruit lungs- no rales, no wheezes regular rhythm abdomen soft, nontender extremities no edema neuro exam- non focal A/P Problem List: (1) Lung mass ICD Code: R91.8 - Other nonspecific abnormal finding of lung field Assessment and Plan 66-year-old female with no significant primary medical history who came in from the [place] [facility] for evaluation of chest tightness, cough, congestion. Acute Respiratory Failure, hypoxia - resolved Acute bronchitis- improved ?Lung/Mediastinal Mass - Pulmonary/CTS ff - decrease to q 12 solumedrol check 02 sats ambulatory- good - possible surgery per CTS thyroid mass/goiter- per patient recent biopsy- through [facility]- ff up for final results DVT prop heparin Patient up and ambulating Heraclio Lyles MD Dec 19, 2016 10:17
--- NOTE | 2016-12-19 10:19 | HHI.PR ---
Subjective Remarks No events overnight. Patient is lying in be din NAD Objective Vital Signs Vital Signs Date Time Temp Pulse Resp B/P (MAP) Pulse Ox O2 Delivery O2 Flow Rate FiO2 12/19/16 10:07 76 12/19/16 08:46 98.2 60 20 131/63 (85) 96 12/19/16 08:43 95 Nasal Cannula 2.00 12/19/16 05:17 98.0 71 18 126/60 (82) 93 12/19/16 00:00 98.0 91 18 124/57 (79) 93 12/18/16 20:00 97.8 81 18 117/59 (78) 95 12/18/16 19:34 95 12/18/16 17:00 98.0 73 20 122/59 (80) 94 12/18/16 12:38 97.6 69 20 129/57 (81) 99 I/O 12/18/16 12/18/16 12/18/16 12/19/16 12/19/16 12/19/16 07:00 15:00 23:00 07:00 15:00 23:00 # Voids 1 # Bowel Movements 0 1 Result Diagram: 12/17/16 0808 12/17/16 0808 Other Results Last Impressions Chest CT 12/16/16 1547 Signed Impressions: Service Date/Time: November 16:09 - CONCLUSION: 1. 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 There is displacement of the airway towards the left. There are several other smaller nodules seen within the thyroid as well. If excision is not planned, biopsy to exclude malignancy may be warranted. John Pruett MD Chest X-Ray 12/16/16 1351 Signed Impressions: Service Date/Time: November 14:37 - CONCLUSION: Approximate 7 cm superior mediastinal mass. CT of the thorax with IV contrast needed to further evaluate. Shayan Gomes Jr., MD Abdomen/Pelvis CT 12/16/16 0000 Signed Impressions: Service Date/Time: November 19:28 - CONCLUSION: No acute CT findings in the abdomen or pelvis. Steve Buenrostro MD Objective Remarks GENERAL: Patient is 66 yo lying in bed in NAD SKIN: Warm and dry. HEAD: Normocephalic. EYES: No scleral icterus. No injection or drainage. NECK: Supple, trachea midline. No JVD or lymphadenopathy. CARDIOVASCULAR: Regular rate and rhythm without murmurs, gallops, or rubs. RESPIRATORY: Breath sounds equal bilaterally. No accessory muscle use. GASTROINTESTINAL: Abdomen soft, non-tender, nondistended. MUSCULOSKELETAL: No cyanosis, or edema. Neuro: Awake and alert A/P Assessment and Plan 1. 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 ddx Mediastinal goiter vs germ cell tumor vs lymphoma. 2. History of persistent cough and reactive airways. 3 Leukocytosis PLAN Oxygen PRN keep sat >92% Bronchodilators PRN, Solumederol 40mg Q12 PFT with flow-volume loops. Seen by CTS - Dr. Magaña, for possible resection this week. Monitor for signs of infections ( Fever, WBC) GI/DVT prophylaxis per primary team. Continue treatment plan. Anthony Velasquez MD Dec 19, 2016 10:19
--- NOTE | 2016-12-19 10:32 | PD.CAR.PN ---
CVT Progress Note Subjective/Hospital Course: No new complaints. Agrees to proceed with surgery. Objective: Vital Signs Date Time Temp Pulse Resp B/P (MAP) Pulse Ox O2 Delivery O2 Flow Rate FiO2 12/19/16 10:07 76 12/19/16 08:46 98.2 60 20 131/63 (85) 96 12/19/16 08:43 95 Nasal Cannula 2.00 12/19/16 05:17 98.0 71 18 126/60 (82) 93 12/19/16 00:00 98.0 91 18 124/57 (79) 93 12/18/16 20:00 97.8 81 18 117/59 (78) 95 12/18/16 19:34 95 12/18/16 17:00 98.0 73 20 122/59 (80) 94 12/18/16 12:38 97.6 69 20 129/57 (81) 99 Result Diagram: 12/17/16 0808 12/17/16 0808 Imaging: Last Impressions Chest CT 12/16/16 1547 Signed Impressions: Service Date/Time: November 16:09 - CONCLUSION: 1. 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 There is displacement of the airway towards the left. There are several other smaller nodules seen within the thyroid as well. If excision is not planned, biopsy to exclude malignancy may be warranted. John Pruett MD Chest X-Ray 12/16/16 1351 Signed Impressions: Service Date/Time: November 14:37 - CONCLUSION: Approximate 7 cm superior mediastinal mass. CT of the thorax with IV contrast needed to further evaluate. Shayan Gomes Jr., MD Abdomen/Pelvis CT 12/16/16 0000 Signed Impressions: Service Date/Time: November 19:28 - CONCLUSION: No acute CT findings in the abdomen or pelvis. Steve Buenrostro MD Pulmonary: CTA GI/: NABS Plan: I discussed the risks and benefits of surgical resection with her and she agrees to proceed. This mass may involve the right phrenic and right recurrent laryngeal nerves, so both are at risk for injury. This procedure will be scheduled Tuesday or Tuesday. Pamella Samuel MD Dec 19, 2016 10:32
[2016-12-19] MEDS ORDERED: CEFAZOLIN INJ 500 MG in SODIUM CHLORIDE 0.9% IRR BTL 500 ML IRRIGATION SCH (10:45)
[2016-12-19] MEDS ORDERED: ceFAZolin 2 GM PREMIX 50 ML IV SCH (10:45)
[2016-12-19] MEDS ORDERED: CHLORHEXIDINE GLUCONATE 4% SOLN 120 ML BTL TOPICAL SCH (10:45)
[2016-12-19] MEDS: MUPIROCIN 2% OINT 1 APPLIC/GM SYR EACH NARE SCH ×2 (11:05→20:41)
[2016-12-19 12:49] LABS: BILIRUBIN, URINE NEG (NEG); BLOOD, URINE NEG (NEG); GLUCOSE,URINE NEG (NEG); KETONE, URINE NEG (NEG); MUCUS URINE FEW /lpf (OCC); NITRITE,URINE NEG (NEG); PH, URINE 6.5 (5.0-8.5); SQUAMOUS EPITHELIAL CELL URINE 1 /hpf (0-5); URINE COLOR YELLOW (YELLW/STRAW); URINE LEUKOCYTE ESTERASE NEG (NEG)
[2016-12-20] VITALS (7 sets, daily range): BP systolic 126–148; BP diastolic 58–84; PULSE 62–97; RESP 18; TEMP 97.6–98.2; O2SAT 93–97
[2016-12-20] MEDS: HEPARIN SODIUM - SQ 10,000 UNITS/ML VIAL SQ SCH ×2 (04:36→17:00)
[2016-12-20] MEDS: RESP: ALBUTEROL 2.5 MG/IPRATROPIUM 0.5 MG NEB (SCH) NEB ×3 (08:00→16:00)
[2016-12-20] MEDS: DOCUSATE SODIUM 50 MG/SENNA 8.6 MG TAB PO SCH ×2 (09:00→21:01)
[2016-12-20] MEDS: MUPIROCIN 2% OINT 1 APPLIC/GM SYR EACH NARE SCH ×2 (09:08→21:00)
[2016-12-20] MEDS: SODIUM CHLORIDE 0.9% FLUSH 10 ML FLUSH IV FLUSH SCH ×2 (09:09→21:01)
[2016-12-20] MEDS: methylPREDNISolone SOD SUCC 40 MG/1 ML VIAL IV PUSH SCH (09:09)
--- NOTE | 2016-12-20 09:40 | HHI.PR ---
Subjective Remarks feeling better no shortness of breath Objective Vitals Vital Signs Date Time Temp Pulse Resp B/P (MAP) Pulse Ox O2 Delivery O2 Flow Rate FiO2 12/20/16 09:22 93 12/20/16 05:55 97.6 96 18 126/84 (98) 93 12/20/16 00:00 98.1 97 18 138/71 (93) 95 12/19/16 20:45 98.1 74 18 136/65 (88) 92 12/19/16 16:38 97.8 70 20 133/68 (89) 95 12/19/16 15:53 92 21 12/19/16 12:10 97.7 80 20 136/63 (87) 96 12/19/16 10:07 76 I/O 12/19/16 12/19/16 12/19/16 12/20/16 12/20/16 12/20/16 07:00 15:00 23:00 07:00 15:00 23:00 Intake Total 960 ml Balance 960 ml Intake Oral 960 ml # Voids 3 3 # Bowel Movements 1 Result Diagram: 12/17/16 0808 12/17/16 0808 Imaging Last Impressions Chest CT 12/16/16 1547 Signed Impressions: Service Date/Time: November 16:09 - CONCLUSION: 1. 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 There is displacement of the airway towards the left. There are several other smaller nodules seen within the thyroid as well. If excision is not planned, biopsy to exclude malignancy may be warranted. John Pruett MD Chest X-Ray 12/16/16 1351 Signed Impressions: Service Date/Time: November 14:37 - CONCLUSION: Approximate 7 cm superior mediastinal mass. CT of the thorax with IV contrast needed to further evaluate. Shayan Gomes Jr., MD Abdomen/Pelvis CT 12/16/16 0000 Signed Impressions: Service Date/Time: November 19:28 - CONCLUSION: No acute CT findings in the abdomen or pelvis. Steve Buenrostro MD Objective Remarks awake and alert, oriented x 3, No acute distress anicteric neck thyroid palpable, no bruit lungs- no rales, no wheezes regular rhythm abdomen soft, nontender extremities no edema neuro exam- non focal A/P Problem List: (1) Lung mass ICD Code: R91.8 - Other nonspecific abnormal finding of lung field Assessment and Plan 66-year-old female with no significant primary medical history who came in from the [place] hospital for evaluation of chest tightness, cough, congestion. Acute Respiratory Failure, hypoxia - resolved Acute bronchitis- improved ?Lung/Mediastinal Mass - Pulmonary/CTS ff- paln for surgery Tue or Tue. CTS ff - decrease to once daily IV solumedrol thyroid mass/goiter- per patient recent biopsy-- "not cancer"- OP ff up in 6 months per [place] instructions DVT prop heparin Patient up and ambulating Heraclio Lyles MD Dec 20, 2016 09:40
[2016-12-21 01:18] VITALS: BP 123/84; PULSE 65; RESP 20; TEMP 97.7; O2SAT 98
[2016-12-21 04:00] VITALS: BP 148/61; PULSE 92; RESP 18; TEMP 98.6; O2SAT 98
[2016-12-21] MEDS: HEPARIN SODIUM - SQ 10,000 UNITS/ML VIAL SQ SCH (05:12)
[2016-12-21 07:45] VITALS: BP 113/57; PULSE 67; RESP 20; TEMP 98.3; O2SAT 97
[2016-12-21] MEDS: SODIUM CHLORIDE 0.9% FLUSH 10 ML FLUSH IV FLUSH SCH ×2 (09:00→22:20)
[2016-12-21] MEDS ORDERED: methylPREDNISolone SOD SUCC 40 MG/1 ML VIAL IV PUSH ONE (09:00)
[2016-12-21] MEDS: MUPIROCIN 2% OINT 1 APPLIC/GM SYR EACH NARE SCH ×2 (09:05→22:20)
[2016-12-21] MEDS: DOCUSATE SODIUM 50 MG/SENNA 8.6 MG TAB PO SCH ×2 (09:05→22:20)
--- NOTE | 2016-12-21 09:55 | HHI.PR ---
Subjective Remarks feels great up and ambulating looking forward to having surgery done Objective Vitals Vital Signs Date Time Temp Pulse Resp B/P (MAP) Pulse Ox O2 Delivery O2 Flow Rate FiO2 12/21/16 07:45 98.3 67 20 113/57 (75) 97 12/21/16 04:00 98.6 92 18 148/61 (90) 98 12/21/16 01:18 97.7 65 20 123/84 (97) 98 12/20/16 21:04 98.1 73 18 148/72 (97) 94 12/20/16 16:00 98.1 68 18 141/66 (91) 97 12/20/16 12:00 97.7 68 18 142/70 (94) 95 I/O 12/20/16 12/20/16 12/20/16 12/21/16 12/21/16 12/21/16 07:00 15:00 23:00 07:00 15:00 23:00 # Voids 3 2 # Bowel Movements 2 Result Diagram: 12/17/16 0808 12/17/16 0808 Imaging Last Impressions Chest CT 12/16/16 1547 Signed Impressions: Service Date/Time: November 16:09 - CONCLUSION: 1. 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 There is displacement of the airway towards the left. There are several other smaller nodules seen within the thyroid as well. If excision is not planned, biopsy to exclude malignancy may be warranted. John Pruett MD Chest X-Ray 12/16/16 1351 Signed Impressions: Service Date/Time: November 14:37 - CONCLUSION: Approximate 7 cm superior mediastinal mass. CT of the thorax with IV contrast needed to further evaluate. Shayan Gomes Jr., MD Abdomen/Pelvis CT 12/16/16 0000 Signed Impressions: Service Date/Time: November 19:28 - CONCLUSION: No acute CT findings in the abdomen or pelvis. Steve Buenrostro MD Objective Remarks awake and alert, oriented x 3, No acute distress anicteric neck thyroid palpable, no bruit lungs- no rales, no wheezes regular rhythm abdomen soft, nontender extremities no edema neuro exam- non focal A/P Problem List: (1) Lung mass ICD Code: R91.8 - Other nonspecific abnormal finding of lung field Assessment and Plan 66-year-old female with no significant primary medical history who came in from the [place] hospital for evaluation of chest tightness, cough, congestion. Acute Respiratory Failure, hypoxia - resolved Acute bronchitis- improved ?Lung/Mediastinal Mass - Pulmonary/CTS ff- plan for surgery- - noon tomorrow per staff- confirmed with OR - decrease to once daily IV solumedrol check labs/INR thyroid mass/goiter- per patient recent biopsy-- "not cancer"- OP ff up in 6 months per [place] instructions DVT prop heparin- hold for surgery Patient up and ambulating PCP- Heraclio De La Torre MD Dec 21, 2016 09:54
[2016-12-21 11:11] VITALS: BP 124/56; PULSE 60; RESP 20; TEMP 98.1; O2SAT 97
[2016-12-21 13:18] LABS: AUTOMATED NEUTROPHIL # 8.7 TH/MM3 (1.8-7.7); EOSINOPHIL % 0.1 % (0.0-4.0); HEMATOCRIT 44.7 % (35.0-46.0); HEMOGLOBIN 14.4 GM/DL (11.6-15.3); LYMPH % 10.7 % (9.0-44.0); LYMPHOCYTE # 1.1 TH/MM3 (1.0-4.8); MEAN CELL VOLUME 88.5 FL (80.0-100.0); MEAN CORPUSCULAR HEMOGLOBIN 28.6 PG (27.0-34.0); MEAN CORPUSCULAR HGB CONC 32.2 % (32.0-36.0); MEAN PLATELET VOLUME 9.4 FL (7.0-11.0); MONO % 5.3 % (0.0-8.0); MONOCYTE # 0.5 TH/MM3 (0-0.9); NEUT % 83.9 % (16.0-70.0); PLATELET COUNT 234 TH/MM3 (150-450); RED BLOOD COUNT 5.05 MIL/MM3 (4.00-5.30); RED CELL DISTRIBUTION WIDTH 15.3 % (11.6-17.2); WHITE BLOOD COUNT 10.4 TH/MM3 (4.0-11.0)
[2016-12-21 13:36] LABS: PROTHROMBIN TIME - PATIENT 10.3 SEC (9.8-11.6)
[2016-12-21 13:38] LABS: INTERNATIONAL NORMALIZED RATIO 0.9 RATIO
[2016-12-21 13:52] LABS: BICARBONATE 28.6 MEQ/L (21.0-32.0); CALCIUM 8.8 MG/DL (8.5-10.1); CREATININE 0.91 MG/DL (0.50-1.00)
[2016-12-21] MEDS ORDERED: POVIDONE IODINE 5% (ANTISEPSIS KIT) 4 APPLICATIONS EACH NARE PRN (14:45)
[2016-12-21] MEDS ORDERED: SODIUM CHLORID 0.9% 500 ML IV PRN (14:45)
[2016-12-21] MEDS ORDERED: INSULIN HUMAN REGULAR 1,000 UNITS/10 ML VIAL SQ PRN (14:45)
[2016-12-21] MEDS ORDERED: CHLORHEXIDINE GLUCONATE 2 % 1 PACK (2 CLOTHS) TOPICAL PRN (14:45)
[2016-12-21] MEDS ORDERED: LACTATED RINGER'S 1000 ML IV PRN (14:45)
[2016-12-21] MEDS ORDERED: METOPROLOL TARTRATE 25 MG TAB PO PRN (14:45)
[2016-12-21 15:59] VITALS: BP 126/60; PULSE 81; RESP 20; TEMP 98.3; O2SAT 96
--- NOTE | 2016-12-21 18:03 | EKG ---
Date Performed: 12/21/2016 Time Performed: 13:35:05 PTAGE: 66 years EKG: SINUS BRADYCARDIA MINIMAL VOLTAGE CRITERIA FOR LVH, CONSIDER NORMAL VARIANT NONSPECIFIC ST & T-WAVE ABNORMALITY BORDERLINE ECG Compared to prior tracing no significant change PREVIOUS TRACING : 12/16/2016 13.54 DOCTOR: Sanjana Pimentel Interpretating Date/Time 12/21/2016 18:02:51
[2016-12-21 20:00] VITALS: BP 123/58; PULSE 62; RESP 18; TEMP 97.6; O2SAT 95
--- NOTE | 2016-12-21 20:19 | HHI.PR ---
Subjective Remarks No events overnight. Patient is lying in be din NAD No SOB Anxious to have surgery done in AM Objective Vital Signs Vital Signs Date Time Temp Pulse Resp B/P (MAP) Pulse Ox O2 Delivery O2 Flow Rate FiO2 12/21/16 15:59 98.3 81 20 126/60 (82) 96 12/21/16 11:11 98.1 60 20 124/56 (78) 97 12/21/16 08:35 Nasal Cannula 12/21/16 07:45 98.3 67 20 113/57 (75) 97 12/21/16 04:00 98.6 92 18 148/61 (90) 98 12/21/16 01:18 97.7 65 20 123/84 (97) 98 12/20/16 21:04 98.1 73 18 148/72 (97) 94 I/O 12/20/16 12/20/16 12/20/16 12/21/16 12/21/16 12/21/16 07:00 15:00 23:00 07:00 15:00 23:00 Intake Total 600 ml Balance 600 ml Intake Oral 600 ml # Voids 3 2 2 # Bowel Movements 2 1 Result Diagram: 12/21/16 1142 12/21/16 1142 Objective Remarks GENERAL: Patient is 66 yo lying in bed in NAD SKIN: Warm and dry. HEAD: Normocephalic. EYES: No scleral icterus. No injection or drainage. NECK: Supple, trachea midline. No JVD or lymphadenopathy. CARDIOVASCULAR: Regular rate and rhythm without murmurs, gallops, or rubs. RESPIRATORY: Breath sounds equal bilaterally. No accessory muscle use. GASTROINTESTINAL: Abdomen soft, non-tender, nondistended. MUSCULOSKELETAL: No cyanosis, or edema. Neuro: Awake and alert A/P Assessment and Plan 1. 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 ddx Mediastinal goiter vs germ cell tumor vs lymphoma. 2. History of persistent cough and reactive airways. 3 Leukocytosis PLAN Oxygen PRN keep sat >92% Bronchodilators PRN, Solumederol 40mg Q12 PFT with flow-volume loops. Monitor for signs of infections ( Fever, WBC) GI/DVT prophylaxis per primary team. Continue treatment plan. Chandan for surgery by in Neal Salvador MD Dec 21, 2016 20:19
[2016-12-22] VITALS (14 sets, daily range): BP systolic 98–148; BP diastolic 49–63; PULSE 49–72; RESP 14–18; TEMP 97.3–97.8; O2SAT 94–99
[2016-12-22] MEDS: MUPIROCIN 2% OINT 1 APPLIC/GM SYR EACH NARE SCH ×2 (08:55→19:59)
[2016-12-22] MEDS: SODIUM CHLORIDE 0.9% FLUSH 10 ML FLUSH IV FLUSH SCH ×2 (08:55→20:00)
[2016-12-22] MEDS: DOCUSATE SODIUM 50 MG/SENNA 8.6 MG TAB PO SCH (08:55)
[2016-12-22] MEDS ORDERED: BUPIVACAINE HCL PF 0.5% 30 ML VIAL ONE (11:18)
[2016-12-22] MEDS ORDERED: ceFAZolin 2 GM PREMIX 50 ML ONE (11:45)
--- NOTE | 2016-12-22 13:00 | HHI.PR ---
Subjective Remarks The patient was seen earlier today. She is in bed awaiting surgery. She says she is breathing fairly well, she is not requiring oxygen at this time. Denies chest pain or shortness of breath. No nausea or vomiting no diarrhea or constipation. Denies any fever or chills. No cough. Objective Vitals Vital Signs Date Time Temp Pulse Resp B/P (MAP) Pulse Ox O2 Delivery O2 Flow Rate FiO2 12/22/16 08:49 97.8 70 16 112/60 (77) 96 12/22/16 04:00 97.7 65 18 148/63 (91) 96 12/22/16 00:00 97.6 53 18 126/58 (80) 94 12/21/16 20:00 97.6 62 18 123/58 (79) 95 12/21/16 15:59 98.3 81 20 126/60 (82) 96 I/O 12/21/16 12/21/16 12/21/16 12/22/16 12/22/16 12/22/16 07:00 15:00 23:00 07:00 15:00 23:00 Intake Total 600 ml Balance 600 ml Intake Oral 600 ml # Voids 2 2 2 2 # Bowel Movements 2 1 Result Diagram: 12/21/16 1142 12/21/16 1142 Imaging Last Impressions Chest CT 12/16/16 1547 Signed Impressions: Service Date/Time: November 16:09 - CONCLUSION: 1. 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 There is displacement of the airway towards the left. There are several other smaller nodules seen within the thyroid as well. If excision is not planned, biopsy to exclude malignancy may be warranted. John Pruett MD Chest X-Ray 12/16/16 1351 Signed Impressions: Service Date/Time: November 14:37 - CONCLUSION: Approximate 7 cm superior mediastinal mass. CT of the thorax with IV contrast needed to further evaluate. Shayan Gomes Jr., MD Abdomen/Pelvis CT 12/16/16 0000 Signed Impressions: Service Date/Time: November 19:28 - CONCLUSION: No acute CT findings in the abdomen or pelvis. Steve Buenrostro MD Objective Remarks GENERAL: Awake and alert, oriented x 3. No acute distress NECK: palpable thyroid, enlarged, no bruit. CARDIOVASCULAR: Regular rate and rhythm. RESPIRATORY: No accessory muscle use. Clear to auscultation. Breath sounds equal bilaterally. GASTROINTESTINAL: Abdomen soft, non-tender, nondistended. Hepatic and splenic margins not palpable. MUSCULOSKELETAL: Extremities without clubbing, cyanosis, or edema. No obvious deformities. NEUROLOGICAL: Awake and alert. No obvious cranial nerve deficits. Motor grossly within normal limits. Five out of 5 muscle strength in the arms and legs. Normal speech. PSYCHIATRIC: Appropriate mood and affect; insight and judgment normal. A/P Problem List: (1) Lung mass ICD Code: R91.8 - Other nonspecific abnormal finding of lung field Assessment and Plan 66-year-old female with no significant primary medical history who came in from the [place] hospital for evaluation of chest tightness, cough, congestion. Acute Respiratory Failure, hypoxia - resolved Acute bronchitis- improved ?Lung/Mediastinal Mass Thyroid mass/goiter- per patient recent biopsy-- "not cancer"- OP ff up in 6 months per [place] instructions Pulmonary/CTS ff- plan for surgery- today at noon decrease to once daily IV solumedrol. Monitor and taper down as tolerated. Labs/INR nl DVT prop heparin- hold for surgery Patient up and ambulating PCP- Dr. Black Discussed with the patient and the nurse Discharge Planning Having surgery today, discharge when improved and cleared by surgeon Kristan Hurtado MD Dec 22, 2016 13:00
[2016-12-22] MEDS ORDERED: POTASSIUM CHLORIDE 10 MEQ CONTROLLED RELEASE TAB PO ONE (13:15)
[2016-12-22] MEDS ORDERED: ONDANSETRON HCL 4 MG/2 ML VIAL IV PUSH PRN (13:45)
[2016-12-22] MEDS ORDERED: ACETAMINOPHEN 325 MG TAB PO PRN (13:45)
[2016-12-22] MEDS ORDERED: oxyCODONE/ACETAMINOPHEN 5 MG/325 MG TAB PO PRN (13:45)
[2016-12-22] MEDS ORDERED: predniSONE 5 MG TAB PO ONE (13:45)
[2016-12-22] MEDS ORDERED: MAGNESIUM HYDROXIDE SUSP 30 ML CUP PO PRN (13:45)
--- NOTE | 2016-12-22 13:57 | PD.OP ---
cc: Windy Champion MD; Pamella Samuel MD Operative Report Date of Surgery: Dec 22, 2016 Preoperative Diagnosis: (1) Mediastinal mass Postoperative Diagnosis: (1) Mediastinal mass (2) Substernal goiter Procedure: Right neck exploration for resection of mediastinal mass, right hemithyroidectomy Anesthesia: Dr. French Surgeon: Pamella Samuel Shredded Filler Cutter Operator(s): Cheyanne Rodas MD Operation and Findings: The risks, benefits, complications, treatment options, and expected outcomes were discussed with the patient. The possibilities of reaction to medication, pulmonary aspiration, perforation of organs, bleeding, recurrent infection, the need for additional procedures, failure to diagnose a condition, and creating a complication requiring transfusion or operation were discussed with the patient. The patient concurred with the proposed plan, giving informed consent. The site of surgery properly noted/marked. The patient was taken to Operating Room, identified as Charisse Gale and the procedure verified as median sternotomy for resection of mediastinal mass . A Time Out was held and the above information confirmed. Standard monitoring lines and Cole catheter were placed. General anesthesia was induced. The patient was prepped and draped and a transverse incision was performed in the at the base of the right neck and supraclavicular fossa. A thin capsule was noted and blunt and sharp dissection was used to mobilize the mass. The mass appeared to originate from the right lobe of the thyroid. The isthmus was divided. Vascular supply to this mass was controlled with hemoclips and 0 silk sutures. The right superior thyroid artery was ligated and divided using a 3-0 silk suture ligature. The mass was very large measuring approximately 8 x 6 cm and appeared to be a thyroid tumor. Once the mass was excised, the wound was irrigated and checked for hemostasis. A 19F Arden drain was placed and secured with a 2-0 silk suture. The mass was mobilized from the mediastinum through the thoracic inlet. A median sternotomy was not performed. Hemostasis was satisfactory. The incision was closed with 2-0 Vicryl in the platysma and running subcuticular Monocryl. Sterile dressings were placed. At the end of the operation, all sponge, instruments, and needle counts were correct. Findings: Probable thyroid tumor extending from the right thyroid inferiorly into the medastinum. Estimated Blood Loss: less than 100 mL Drains: 19F Arden drain Specimens: right thyroid mass Complications: none Disposition: to PACU instable condition Pamella Samuel MD Dec 22, 2016 13:57
[2016-12-22] MEDS ORDERED: DO NOT ADM ANY ANTICOAGULANT DRUGS PRN (14:15)
[2016-12-22] MEDS ORDERED: Post-op Orders (for Pharmacy) MISC OTHER ONE (14:15)
[2016-12-22] MEDS ORDERED: *morphine SULFATE 8 MG/ML PERIprocedure ONLY ONE (14:41)
--- NOTE | 2016-12-22 15:36 | RADRPT ---
EXAM DATE/TIME: 12/22/2016 14:46 [facility] COMPARISON: CT THORAX W CONTRAST, December 16, 2016, 16:09. INDICATIONS : post Thoracotomy. MEDICAL HISTORY : None. SURGICAL HISTORY : None. ENCOUNTER: Initial ACUITY: 1 day PAIN SCORE: Non-responsive. LOCATION: Bilateral chest FINDINGS: A drain overlies the right paratracheal mass/collection. No pneumothorax is noted. The heart is enlar ged. Minimal central vascular congestion is likely. CONCLUSION: 1. No pneumothorax. 2. Right paratracheal mass/collection. 3. Cardiomegaly. 4. Minimal central vascular congestion. Saud Altman MD on December 22, 2016 at 15:32 Board Certified Radiologist. This report was verified electronically.
[2016-12-22] MEDS: KETOROLAC TROMETHAMINE 30 MG/ML (IVP) VIAL IV PUSH SCH ×2 (15:37→20:03)
[2016-12-22] MEDS: DOCUSATE CALCIUM 240 MG CAP PO SCH (20:03)
[2016-12-22] MEDS: PANTOPRAZOLE SOD 40 MG DELAYED RELEASE TAB PO SCH (20:03)
--- NOTE | 2016-12-22 20:05 | HHI.PR ---
Subjective Remarks No events overnight. Patient is lying in be din NAD No SOB Had resection of mediasinal mass and right hemithyroidectomy Objective Vital Signs Vital Signs Date Time Temp Pulse Resp B/P (MAP) Pulse Ox O2 Delivery O2 Flow Rate FiO2 12/22/16 18:16 53 12/22/16 17:11 55 12/22/16 16:20 97.3 55 14 98/49 (65) 98 12/22/16 16:20 55 12/22/16 15:55 96.6 55 15 105/52 (69) 99 Nasal Cannula 2 12/22/16 15:44 96.6 12/22/16 15:26 53 15 104/54 (71) 99 Nasal Cannula 2 12/22/16 15:20 96.1 12/22/16 15:15 51 16 102/54 (70) 99 Nasal Cannula 3 12/22/16 15:00 51 15 113/55 (74) 99 Nasal Cannula 3 12/22/16 14:45 56 17 125/58 (80) 100 Nasal Cannula 3 12/22/16 14:30 56 16 120/58 (78) 100 Nasal Cannula 3 12/22/16 14:20 95.7 12/22/16 14:17 95.7 58 16 108/55 (72) 100 Nasal Cannula 4 12/22/16 08:49 97.8 70 16 112/60 (77) 96 12/22/16 04:00 97.7 65 18 148/63 (91) 96 12/22/16 00:00 97.6 53 18 126/58 (80) 94 I/O 12/21/16 12/21/16 12/21/16 12/22/16 12/22/16 12/22/16 07:00 15:00 23:00 07:00 15:00 23:00 Intake Total 600 ml 1500 ml Output Total 400 ml 30 ml Balance 600 ml 1100 ml -30 ml Intake Oral 600 ml Other 1500 ml Output Urine Total 200 ml Drainage Total 30 ml Estimated Blood Loss 100 ml Other 100 ml # Voids 2 2 2 2 # Bowel Movements 2 1 Result Diagram: 12/21/16 1142 12/21/16 1142 Objective Remarks GENERAL: Patient is 66 yo lying in bed in NAD SKIN: Warm and dry. HEAD: Normocephalic. EYES: No scleral icterus. No injection or drainage. NECK: Supple, trachea midline. No JVD or lymphadenopathy. CARDIOVASCULAR: Regular rate and rhythm without murmurs, gallops, or rubs. RESPIRATORY: Breath sounds equal bilaterally. No accessory muscle use. GASTROINTESTINAL: Abdomen soft, non-tender, nondistended. MUSCULOSKELETAL: No cyanosis, or edema. Neuro: Awake and alert A/P Assessment and Plan 1. 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 ddx Mediastinal goiter vs germ cell tumor vs lymphoma. 2. History of persistent cough and reactive airways. 3 Leukocytosis PLAN Monitor for signs of infections ( Fever, WBC) GI/DVT prophylaxis per primary team. Continue treatment plan. Supplement 02 will FU in AM Neal Salvador MD Dec 22, 2016 20:05
[2016-12-23] VITALS (26 sets, daily range): BP systolic 103–134; BP diastolic 50–61; PULSE 49–87; RESP 16–18; TEMP 97.5–98; O2SAT 95–98
[2016-12-23] MEDS: KETOROLAC TROMETHAMINE 30 MG/ML (IVP) VIAL IV PUSH SCH ×2 (03:46→07:39)
[2016-12-23] MEDS: ACETAMINOPHEN 325 MG TAB PO PRN ×2 (03:47→19:13)
[2016-12-23 04:48] LABS: AUTOMATED NEUTROPHIL # 8.2 TH/MM3 (1.8-7.7); BASOPHIL % 0.1 % (0.0-2.0); EOSINOPHIL % 0.2 % (0.0-4.0); HEMATOCRIT 37.2 % (35.0-46.0); HEMOGLOBIN 12.2 GM/DL (11.6-15.3); LYMPH % 12.2 % (9.0-44.0); LYMPHOCYTE # 1.2 TH/MM3 (1.0-4.8); MEAN CELL VOLUME 88.2 FL (80.0-100.0); MEAN CORPUSCULAR HEMOGLOBIN 28.8 PG (27.0-34.0); MEAN CORPUSCULAR HGB CONC 32.7 % (32.0-36.0); MEAN PLATELET VOLUME 9.3 FL (7.0-11.0); MONO % 4.3 % (0.0-8.0); MONOCYTE # 0.4 TH/MM3 (0-0.9); NEUT % 83.2 % (16.0-70.0); PLATELET COUNT 174 TH/MM3 (150-450); RED BLOOD COUNT 4.22 MIL/MM3 (4.00-5.30); WHITE BLOOD COUNT 9.9 TH/MM3 (4.0-11.0)
[2016-12-23 05:06] LABS: BICARBONATE 26.8 MEQ/L (21.0-32.0); CALCIUM 7.3 MG/DL (8.5-10.1); CREATININE 0.76 MG/DL (0.50-1.00)
[2016-12-23 05:20] LABS: CALCIUM-PROTEIN CORRECTED 8.1 MG/DL (8.5-10.1); TOTAL PROTEIN 5.6 GM/DL (6.4-8.2)
[2016-12-23] MEDS: MUPIROCIN 2% OINT 1 APPLIC/GM SYR EACH NARE SCH ×2 (07:36→20:34)
[2016-12-23] MEDS: SODIUM CHLORIDE 0.9% FLUSH 10 ML FLUSH IV FLUSH SCH ×2 (07:39→20:41)
--- NOTE | 2016-12-23 08:03 | PD.CAR.PN ---
CVT Progress Note CVT: POD #: 1 Subjective/Hospital Course: No new complaints. Agrees to proceed with surgery. 12/23/16 Doing well s/p right hemithyroidectomy. No hoarseness, dysarthria Objective: Vital Signs Date Time Temp Pulse Resp B/P (MAP) Pulse Ox O2 Delivery O2 Flow Rate FiO2 12/23/16 06:00 51 12/23/16 05:41 95 12/23/16 05:00 49 12/23/16 04:00 54 12/23/16 03:30 97.6 53 16 107/53 (71) 95 12/23/16 03:30 95 Room Air 12/23/16 03:00 49 12/23/16 02:00 58 12/23/16 01:00 53 12/23/16 00:00 53 12/22/16 23:35 96 Room Air 12/22/16 23:30 99 Nasal Cannula 2.00 12/22/16 23:30 97.5 72 16 110/54 (72) 99 12/22/16 23:00 54 12/22/16 22:00 52 12/22/16 21:00 49 12/22/16 20:00 51 12/22/16 19:45 99 Nasal Cannula 2.00 12/22/16 19:45 97.7 53 16 100/54 (69) 99 12/22/16 19:00 55 12/22/16 18:16 53 12/22/16 17:11 55 12/22/16 16:20 97.3 55 14 98/49 (65) 98 12/22/16 16:20 55 12/22/16 15:55 96.6 55 15 105/52 (69) 99 Nasal Cannula 2 12/22/16 15:44 96.6 12/22/16 15:26 53 15 104/54 (71) 99 Nasal Cannula 2 12/22/16 15:20 96.1 12/22/16 15:15 51 16 102/54 (70) 99 Nasal Cannula 3 12/22/16 15:00 51 15 113/55 (74) 99 Nasal Cannula 3 12/22/16 14:45 56 17 125/58 (80) 100 Nasal Cannula 3 12/22/16 14:30 56 16 120/58 (78) 100 Nasal Cannula 3 12/22/16 14:20 95.7 12/22/16 14:17 95.7 58 16 108/55 (72) 100 Nasal Cannula 4 12/22/16 08:49 97.8 70 16 112/60 (77) 96 Labs: Laboratory Tests Test 12/23/16 04:18 White Blood Count 9.9 TH/MM3 (4.0-11.0) Red Blood Count 4.22 MIL/MM3 (4.00-5.30) Hemoglobin 12.2 GM/DL (11.6-15.3) Hematocrit 37.2 % (35.0-46.0) Mean Corpuscular Volume 88.2 FL (80.0-100.0) Mean Corpuscular Hemoglobin 28.8 PG (27.0-34.0) Mean Corpuscular Hemoglobin Concent 32.7 % (32.0-36.0) Red Cell Distribution Width 15.0 % (11.6-17.2) Platelet Count 174 TH/MM3 (150-450) Mean Platelet Volume 9.3 FL (7.0-11.0) Neutrophils (%) (Auto) 83.2 % (16.0-70.0) Lymphocytes (%) (Auto) 12.2 % (9.0-44.0) Monocytes (%) (Auto) 4.3 % (0.0-8.0) Eosinophils (%) (Auto) 0.2 % (0.0-4.0) Basophils (%) (Auto) 0.1 % (0.0-2.0) Neutrophils # (Auto) 8.2 TH/MM3 (1.8-7.7) Lymphocytes # (Auto) 1.2 TH/MM3 (1.0-4.8) Monocytes # (Auto) 0.4 TH/MM3 (0-0.9) Eosinophils # (Auto) 0.0 TH/MM3 (0-0.4) Basophils # (Auto) 0.0 TH/MM3 (0-0.2) CBC Comment DIFF FINAL Differential Comment Blood Urea Nitrogen 18 MG/DL (7-18) Creatinine 0.76 MG/DL (0.50-1.00) Random Glucose 94 MG/DL (74-106) Total Protein 5.6 GM/DL (6.4-8.2) Calcium Level 7.3 MG/DL (8.5-10.1) Sodium Level 140 MEQ/L (136-145) Potassium Level 4.2 MEQ/L (3.5-5.1) Chloride Level 105 MEQ/L (98-107) Carbon Dioxide Level 26.8 MEQ/L (21.0-32.0) Anion Gap 8 MEQ/L (5-15) Estimat Glomerular Filtration Rate 93 ML/MIN (>89) Protein Corrected Calcium 8.1 MG/DL (8.5-10.1) Result Diagram: 12/23/16 0418 12/23/16 0418 Imaging: Last Impressions Chest CT 12/16/16 1547 Signed Impressions: Service Date/Time: November 16:09 - CONCLUSION: 1. 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 There is displacement of the airway towards the left. There are several other smaller nodules seen within the thyroid as well. If excision is not planned, biopsy to exclude malignancy may be warranted. John Pruett MD Chest X-Ray 12/16/16 1351 Signed Impressions: Service Date/Time: November 14:37 - CONCLUSION: Approximate 7 cm superior mediastinal mass. CT of the thorax with IV contrast needed to further evaluate. Shayan Gomes Jr., MD Abdomen/Pelvis CT 12/16/16 0000 Signed Impressions: Service Date/Time: November 19:28 - CONCLUSION: No acute CT findings in the abdomen or pelvis. Steve Buenrostro MD Cardiovascular: RRR Telemetry: NSR Pulmonary: CTA GI/: NABS, NT Incision: dry and intact Plan: Continue Arden drain one more day D/C tomorrow Advance diet Encourage ambulation Pamella Samuel MD Dec 23, 2016 08:03
[2016-12-23] MEDS ORDERED: methylPREDNISolone SOD SUCC 40 MG/1 ML VIAL IM SCH (09:00)
[2016-12-23] MEDS ORDERED: methylPREDNISolone SOD SUCC 40 MG/1 ML VIAL IV PUSH SCH (09:00)
--- NOTE | 2016-12-23 18:01 | HHI.PR ---
Subjective Remarks Had a Armando thyroidectomy. Doing well. NO SOB . On O2 2 L Objective Vital Signs Date Time Temp Pulse Resp B/P (MAP) Pulse Ox O2 Delivery O2 Flow Rate FiO2 12/23/16 17:13 68 12/23/16 16:00 55 12/23/16 15:00 97.7 54 16 121/59 (79) 98 12/23/16 15:00 59 12/23/16 15:00 98 Room Air 12/23/16 14:00 87 12/23/16 13:10 55 12/23/16 12:03 60 12/23/16 11:00 97.5 53 16 103/50 (67) 96 12/23/16 11:00 96 Room Air 12/23/16 11:00 55 12/23/16 10:05 52 12/23/16 09:04 53 12/23/16 08:40 97 12/23/16 08:00 54 12/23/16 08:00 96 Room Air 12/23/16 08:00 58 12/23/16 08:00 97.5 54 16 134/61 (85) 96 12/23/16 06:00 51 12/23/16 05:41 95 12/23/16 05:00 49 12/23/16 04:00 54 12/23/16 03:30 97.6 53 16 107/53 (71) 95 12/23/16 03:30 95 Room Air 12/23/16 03:00 49 12/23/16 02:00 58 12/23/16 01:00 53 12/23/16 00:00 53 12/22/16 23:35 96 Room Air 12/22/16 23:35 99 21 12/22/16 23:30 99 Nasal Cannula 2.00 12/22/16 23:30 99 Nasal Cannula 2.00 12/22/16 23:30 97.5 72 16 110/54 (72) 99 12/22/16 23:00 54 12/22/16 22:00 52 12/22/16 21:00 49 12/22/16 20:00 51 12/22/16 19:45 99 Nasal Cannula 2.00 12/22/16 19:45 99 Nasal Cannula 2.00 12/22/16 19:45 97.7 53 16 100/54 (69) 99 12/22/16 19:00 55 12/22/16 18:16 53 I/O 12/22/16 12/22/16 12/22/16 12/23/16 12/23/16 12/23/16 07:00 15:00 23:00 07:00 15:00 23:00 Intake Total 1500 ml 340 ml 100 ml 560 ml Output Total 400 ml 30 ml 515 ml 770 ml Balance 1100 ml -30 ml -175 ml 100 ml -210 ml Intake Oral 240 ml 560 ml IV Total 100 ml 100 ml Other 1500 ml Output Urine Total 200 ml 475 ml 750 ml Drainage Total 30 ml 40 ml 20 ml Estimated Blood Loss 100 ml Other 100 ml # Voids 2 # Bowel Movements 0 0 Result Diagram: 12/23/1641712/23/16417 Objective Remarks GENERAL: This is an averagely built middle-aged -[place] female in no acute distress. HEENT: Head normocephalic. Pupils are reactive. Tongue is moist. Throat is mildly injected. NECK: Supple. Scar of surgery in neck a smaller nodular area in the left side of the neck towards the trachea. The submandibular nodes are not palpable. There is no venous distension. CHEST: Equal movements with percussion note resonant throughout. Breath sounds slightly diminished over the periphery but otherwise clear. HEART: The heart sounds are regular S1-S2 with no murmur. No S3. ABDOMEN: Soft and nontender. No organomegaly. The bowel sounds are active. EXTREMITIES: No lesions. No edema. NEUROLOGIC: Reflexes are 1+ with no gross motor deficits. Cranial nerves grossly intact. SKIN: No lesions. Assessment and Plan Assessment and Plan IMPRESSION 1. 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 2. Respiratory insufficiency secondary to above. 3. History of persistent cough and reactive airways. 4. S/P Thyroidectomy. Plan : 1. IS q3h. 2. O2 1 L prn. 3. Nebs qid duoneb prn. 4. CXR , CBC in am 5. Cont antibiotics Windy Champion MD Dec 23, 2016 18:01
[2016-12-23] MEDS: DOCUSATE CALCIUM 240 MG CAP PO SCH (20:34)
[2016-12-23] MEDS: PANTOPRAZOLE SOD 40 MG DELAYED RELEASE TAB PO SCH (20:34)
[2016-12-24] VITALS (10 sets, daily range): BP systolic 116–123; BP diastolic 50–59; PULSE 53–86; RESP 16–20; TEMP 97.9–98.2; O2SAT 95–98
[2016-12-24] MEDS ORDERED: OXYC1TAB63 PO (08:12)
--- NOTE | 2016-12-24 08:16 | HHI.DS ---
Discharge Summary Admission Date Dec 16, 2016 at 17:57 Discharge Date: Dec 24, 2016 Admitting Diagnosis acute bronchitis, hypoxia, mediastinal mass, (1) Lung mass ICD Codes: R91.8 - Other nonspecific abnormal finding of lung field Procedures Right hemithyroidectomy Brief History 66y/o female presents with cough, congestion, dyspnea, and mild dysphagia for several weeks. 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 She is being considered for surgical exploration and resection. She denies h/o thyroid disease or malignancy CBC/BMP: 12/23/16 0418 12/23/16 0418 Significant Findings Laboratory Tests Test 12/21/16 11:42 12/23/16 04:18 Neutrophils (%) (Auto) 83.9 % (16.0-70.0) 83.2 % (16.0-70.0) Neutrophils # (Auto) 8.7 TH/MM3 (1.8-7.7) 8.2 TH/MM3 (1.8-7.7) Blood Urea Nitrogen 20 MG/DL (7-18) Potassium Level 3.3 MEQ/L (3.5-5.1) Estimat Glomerular Filtration Rate 75 ML/MIN (>89) Total Protein 5.6 GM/DL (6.4-8.2) Calcium Level 7.3 MG/DL (8.5-10.1) Protein Corrected Calcium 8.1 MG/DL (8.5-10.1) Imaging Last Impressions Chest X-Ray 12/22/16 0000 Signed Impressions: Service Date/Time: Thursday, December 22, 2016 14:46 - CONCLUSION: 1. No pneumothorax. 2. Right paratracheal mass/collection. 3. Cardiomegaly. 4. Minimal central vascular congestion. Saud Altman MD Chest CT 12/16/16 1547 Signed Impressions: Service Date/Time: November 16:09 - CONCLUSION: 1. 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 There is displacement of the airway towards the left. There are several other smaller nodules seen within the thyroid as well. If excision is not planned, biopsy to exclude malignancy may be warranted. John Pruett MD Abdomen/Pelvis CT 12/16/16 0000 Signed Impressions: Service Date/Time: November 19:28 - CONCLUSION: No acute CT findings in the abdomen or pelvis. Steve Buenrostro MD PE at Discharge chest - CTA wound - dry and intact Hospital Course Patient presented with cough, congestion, wheezing. She underwent CXR which showed a right mediastinal/paratrachesl mass. Chest CT confirmed ~7 x 6 cm mediastinal mass appearing to originate from thyroid. She underwent right hemithyroidectomy and the mass was completely resected. Pathology is pending. She had no complications and is being discharged POD 2. Pt Condition on Discharge: Good Discharge Disposition: Discharge Home Discharge Instructions DIET: Follow Instructions for: As Tolerated, No Restrictions Activities you can perform: Regular-No Restrictions Activities to avoid: Driving Follow up Referrals: PCP Follow-up - 2 Weeks Surgical with Pamella Samuel MD New Medications: Oxycodone-Acetaminophen (Oxycodone-Acetaminophen) 5-325 mg Tab 1 TAB PO Q3H PRN for PAIN SCALE 3 TO 5, #20 TAB Pamella Samuel MD Dec 24, 2016 08:16
[2016-12-24] MEDS: MUPIROCIN 2% OINT 1 APPLIC/GM SYR EACH NARE SCH (09:00)
[2016-12-24] MEDS: SODIUM CHLORIDE 0.9% FLUSH 10 ML FLUSH IV FLUSH SCH (09:00)
--- NOTE | 2016-12-24 12:52 | HHI.PR ---
Subjective Remarks Examined patient this morning at 8:30 AM and now documenting No complaints. Doing well. Pain control. Happy to be going home today. Objective Vitals Vital Signs Date Time Temp Pulse Resp B/P (MAP) Pulse Ox O2 Delivery O2 Flow Rate FiO2 12/24/16 10:00 86 12/24/16 09:00 84 12/24/16 08:00 98.2 86 16 123/56 (78) 95 12/24/16 08:00 86 12/24/16 08:00 95 Room Air 12/24/16 06:00 54 12/24/16 05:00 53 12/24/16 04:00 98 Room Air 12/24/16 04:00 98.2 54 20 120/59 (79) 98 12/24/16 04:00 54 12/24/16 03:00 56 12/24/16 02:00 61 12/24/16 01:00 55 12/24/16 00:00 57 12/24/16 00:00 97.9 56 20 116/50 (72) 98 12/23/16 23:12 98 Room Air 12/23/16 23:00 63 12/23/16 22:00 61 12/23/16 21:00 62 12/23/16 20:00 98 Room Air 12/23/16 20:00 98.0 61 18 133/60 (84) 98 12/23/16 20:00 59 12/23/16 19:00 61 12/23/16 18:00 63 12/23/16 17:13 68 12/23/16 16:00 55 12/23/16 15:00 97.7 54 16 121/59 (79) 98 12/23/16 15:00 59 12/23/16 15:00 98 Room Air 12/23/16 14:00 87 12/23/16 13:10 55 I/O 12/23/16 12/23/16 12/23/16 12/24/16 12/24/16 12/24/16 07:00 15:00 23:00 07:00 15:00 23:00 Intake Total 340 ml 100 ml 560 ml 240 ml Output Total 515 ml 770 ml 420 ml Balance -175 ml 100 ml -210 ml -180 ml Intake Oral 240 ml 560 ml 240 ml IV Total 100 ml 100 ml Output Urine Total 475 ml 750 ml 400 ml Drainage Total 40 ml 20 ml 20 ml # Bowel Movements 0 0 Result Diagram: 12/23/1641712/23/16417 Objective Remarks GENERAL: This is a well-nourished, well-developed patient, in no apparent distress. Neck DURAN drain placed bandage in place CARDIOVASCULAR: Regular rate and rhythm RESPIRATORY: Clear to auscultation. Breath sounds equal bilaterally. No wheezes , rales, or rhonchi. GASTROINTESTINAL: Abdomen soft, non-tender, nondistended. Normal active bowel sounds MUSCULOSKELETAL: Extremities without clubbing, cyanosis, or edema. NEURO: Alert & Oriented x4 to person, place, time, situation. Moves all ext x4 A/P Problem List: (1) Lung mass ICD Code: R91.8 - Other nonspecific abnormal finding of lung field Assessment and Plan (1) Lung mass ICD Code: R91.8 - Other nonspecific abnormal finding of lung field Assessment and Plan 66-year-old female with no significant primary medical history who came in from the [place] hospital for evaluation of chest tightness, cough, congestion. Acute Respiratory Failure, hypoxia - resolved now currently on room air Acute bronchitis- improved ?Lung/Mediastinal Mass status post operative day #2 right hemithyroidectomy Thyroid mass/goiter- per patient recent biopsy-- "not cancer"- outpatient follow -up up in 6 months per [place] instructions DURAN drain will be removed today by cardiothoracic surgery. She has been cleared to be discharged home. DVT prop heparin, SCDs Patient up and ambulating Discharge Planning Hospitalist clear patient for discharge to home today. Aisha Jarrell MD Dec 24, 2016 12:52
== END 2016-12-24 10:50 | disposition home or self-care (01) | DRG 625 ==
LOC: NEPE 13:23 → NEDA 17:57 → N05A 19:51 → HCPC 12-22 16:00
PROVIDERS: ADMIT Family Medicine; ATTEND Family Medicine
PROC: 0GTH0ZZ Resection of Right Thyroid Gland Lobe, Open Approach (ICD-10-PCS; principal; 2016-12-22 12:00)
DX: E04.9 Nontoxic goiter, unspecified (principal); J96.01 Acute respiratory failure with hypoxia; R13.10 Dysphagia, unspecified; R63.4 Abnormal weight loss; R10.9 Unspecified abdominal pain; E78.5 Hyperlipidemia, unspecified; J20.9 Acute bronchitis, unspecified
CPT/HCPCS: 36600; 71010; 71020; 71260; 74176; 80048; 80053; 81001; 82550; 82805; 84155; 84439; 84443; 84484; 85025; 85610; 86850; 86900; 86901; 86920; 88307; 93005; 94010; 94150; 94640; 94664; 96372; J0456; J0690; J0696; J1644; J1885; J2270; J2920; J7050; J7512; Q9963; Q9967